=== PATIENT | female | born 1945 | race Caucasian/White ===

== ENCOUNTER 2022-12-05 10:34 | Inpatient (IN) | payer MEDICARE ==
--- NOTE | 2022-12-05 11:39 | ED ---
General Adult HPI - General Chief complaint: Extremity Injury, Lower Stated complaint: knee pain/swelling Time Seen by Provider: 12/05/22 11:08 Source: patient, family, RN notes reviewed Mode of arrival: wheelchair Limitations: no limitations - History of Present Illness Initial comments: 77-year-old female presents to the emergency department chief complaint of left knee pain 1 day. Past medical history includes hypertension, hyperlipidemia, osteoarthritis. Patient states that she had a fall on in which she got lightheaded and fell down. She states that she did not hit her head and she is not on blood thinners. She was evaluated yesterday for shoulder pain following the fall and states that she has a broken bone in her arm/shoulder. She is currently in a sling. She states she was not having significant knee pain at the time of evaluation yesterday but the pain immediately developed today. She does report falling on the left knee. She states that the pain is worse with walking but constant. She also reports that she has been lightheaded pretty consistently since before the fall. She states that nothing makes lighthead edness better or worse. Her daughter states that she is not hydrating or eating well. Patient denies fever, chills, abdominal pain, nausea, vomiting, diarrhea. - Related Data Home Medications Medication Instructions Recorded Confirmed Ascorbic Acid [Vitamin C] 500 mg PO DAILY 07/22/22 12/05/22 Cetirizine HCl [Zyrtec] 10 mg PO HS 07/22/22 12/05/22 Cholecalciferol [Vitamin D3 (25 50 mcg PO DAILY 07/22/22 12/05/22 Mcg = 1000 Iu)] Enalapril/Hydrochlorothiazide 1 tab PO DAILY 07/22/22 12/05/22 [Enalapril/Hydrochlorothiazide 10-25 mg Tablet] Prevagen Supplement 1 tab PO DAILY 07/22/22 12/05/22 Simvastatin [Zocor] 10 mg PO HS 07/22/22 12/05/22 Turmeric Root Extract [Turmeric] 500 mg PO DAILY 07/22/22 12/05/22 Ubidecarenone [Co Q-10] 200 mg PO DAILY 07/22/22 12/05/22 traMADol HCL 50 mg PO Q8H PRN 12/05/22 12/05/22 Allergies Allergy/AdvReac Type Severity Reaction Status Date / Time codeine Allergy Confusion Verified 12/05/22 14:09 Review of Systems ROS Statement: Those systems with pertinent positive or pertinent negative responses have been documented in the HPI. ROS Other: All systems not noted in ROS Statement are negative. Past Medical History Past Medical History: Hyperlipidemia, Hypertension, Osteoarthritis (OA) Additional Past Medical History / Comment(s): hemorrhoids w/ prolapse History of Any Multi-Drug Resistant Organisms: None Reported Past Surgical History: Appendectomy, Back Surgery Additional Past Surgical History / Comment(s): spinal surgery to remove cysts Past Anesthesia/Blood Transfusion Reactions: No Reported Reaction Additional Past Anesthesia/Blood Transfusion Reaction / Comment(s): no hx blood transfusion Past Psychological History: No Psychological Hx Reported Smoking Status: Current every day smoker Past Alcohol Use History: None Reported Past Drug Use History: None Reported - Past Family History Mother Family Medical History: No Reported History General Exam Limitations: no limitations General appearance: alert, in no apparent distress Head exam: Present: atraumatic, normocephalic, normal inspection Eye exam: Present: normal appearance, PERRL, EOMI Neck exam: Present: normal inspection. Absent: tenderness, meningismus, lymphadenopathy Respiratory exam: Absent: respiratory distress, stridor, chest wall tenderness, accessory muscle use Cardiovascular Exam: Present: regular rate, normal rhythm GI/Abdominal exam: Present: soft, normal bowel sounds. Absent: distended, tenderness, guarding, rebound, rigid Extremities exam: Present: tenderness (lt knee, right shoulder ), normal capillary refill, other (DP and PT pulses 2+, Left knee swelling and ecchymosis ) Back exam: Present: normal inspection Neurological exam: Present: alert, oriented X3 Psychiatric exam: Present: depressed Skin exam: Present: warm, dry, intact, other (ecchymosis lt knee) Course Vital Signs 12/05/22 12/05/22 12/05/22 10:50 14:00 14:44 Temperature 98.2 F Pulse Rate 70 68 Respiratory 18 18 Rate Blood Pressure 101/55 124/63 O2 Sat by Pulse 99 95 84 L Oximetry 12/05/22 12/05/22 12/05/22 15:00 16:00 17:00 Temperature Pulse Rate Respiratory Rate Blood Pressure 124/63 124/63 O2 Sat by Pulse 92 L Oximetry 12/05/22 17:17 Temperature 98.7 F Pulse Rate 78 Respiratory 16 Rate Blood Pressure O2 Sat by Pulse 99 Oximetry Medical Decision Making - Medical Decision Making Was pt. sent in by a medical professional or institution (, PA, WALL TAPER HELPER, urgent care, hospital, or alf...) When possible be specific @ -No Did you speak to anyone other than the patient for history (EMS, parent, family, police, friend...)? What history was obtained from this source @ -Patient's daughter provided some history for this patient Did you review nursing and triage notes (agree or disagree)? Why? @ -I reviewed and agree with nursing and triage notes Were old charts reviewed (outside hosp., previous admission, EMS record, old EKG, old radiological studies, urgent care reports/EKG's, alf records)? Report findings @ -No old charts were reviewed Differential Diagnosis (chest pain, altered mental status, abdominal pain women, abdominal pain men, vaginal bleeding, weakness, fever, dyspnea, syncope, headache, dizziness, GI bleed, back pain, seizure, CVA, palpatations, mental health, musculoskeletal)? @ -Differential Dizziness: Benign paroxysmal positional Vertigo, Menieres disease, otitis media, acoustic neuroma, vertebrobasilar insufficiency, cerebellar stroke, encephalitis, hypovolemic, arrhythmia, coronary artery syndrome, anemia, this is not meant to be an all-inclusive list Differential Musculoskeletal Muscular strain, contusion, ligament sprain, fracture, arthritis, septic arthritis, bursitis, cellulitis, muscle spasm, nerve compression, DVT, arterial occlusion, herpes zoster, electrolyte abnormality, tumor.... This is not meant to be in all inclusive list EKG interpreted by me (3pts min.). @ -EKG at 1155 showed sinus rhythm rate 72, AZ 200, QRS 64, QTQTc [id number] X-rays interpreted by me (1pt min.). @ -Chest x-ray showed left basilar atelectasis versus pneumonia; curvilinear density on the right lung base of uncertain etiology X-ray left knee showed osteoarthritic changes mild knee effusion CT interpreted by me (1pt min.). @ -None done U/S interpreted by me (1pt. min.). @ -None done What testing was considered but not performed or refused? (CT, X-rays, U/S, labs)? Why? @ -None What meds were considered but not given or refused? Why? @ -None Did you discuss the management of the patient with other professionals (professionals i.e. , PA, WALL TAPER HELPER, lab, RT, psych nurse, social services technician, furniture upholstery mechanic, teacher, fare enforcement officer, geriatric case manager)? Give summary @ -Case was discussed with Dr. Morgan with [facility] who is accepting of the admission Was smoking cessation discussed for >3mins.? @ -No Was critical care preformed (if so, how long)? @ -No Were there social determinants of health that impacted care today? How? (Homelessness, low income, unemployed, alcoholism, drug addiction, transportation, low edu. Level, literacy, decrease access to med. care, longterm, rehab)? @ -No Was there de-escalation of care discussed even if they declined (Discuss DNR or withdrawal of care, Hospice)? DNR status @ -No What co-morbidities impacted this encounter? (DM, HTN, Smoking, COPD, CAD, Cancer, CVA, ARF, Chemo, Hep., AIDS, mental health diagnosis, sleep apnea, morbi d obesity)? @ -None Was patient admitted / discharged? Hospital course, mention meds given and route, prescriptions, significant lab abnormalities, going to OR and other pertinent info. @ -admitted. Patient presented to the emergency department for chief complaint of fall, knee pain, lightheadedness. Labs were obtained and patient was found to be hyponatremic with a sodium of 121. CBC showed WBC 15.3, hgb 11.8, hct 34.8, Potassium 3.6, chloride 86, BUN 23, creatinine 1.3, serum osmolality 251; UA showed large leukocyte esterase, 11 squamous cells, 35 WBC X-ray left knee was obtained which showed no evidence for acute fracture, arthri tic changes; chest x-ray showed left basilar atelectasis versus pneumonia. Case was discussed with Dr. Morgan with [facility] who was accepting of the admission. He requested a CT of the chest be ordered along with repeat urine. Patient would benefit from PT and OT consultation. Case discussed with my attending, Dr. De Oliveira Undiagnosed new problem with uncertain prognosis? @ -No Drug Therapy requiring intensive monitoring for toxicity (Heparin, Nitro, Insulin, Cardizem)? @ -No Were any procedures done? @ -No Diagnosis/symptom? @ -Hyponatremia Acute, or Chronic, or Acute on Chronic? @ -Acute Uncomplicated (without systemic symptoms) or Complicated (systemic symptoms)? @ -Uncomplicated Side effects of treatment? @ -No Exacerbation, Progression, or Severe Exacerbation? @ -No Poses a threat to life or bodily function? How? (Chest pain, USA, NV, pneumonia, PE, COPD, DKA, ARF, appy, cholecystitis, CVA, Diverticulitis, Homicidal, Suicidal, threat to staff... and all critical care pts) @ -No - Lab Data Result diagrams: 12/05/22 11:57 12/05/22 20:47 Lab Results 12/05/22 12/05/22 12/05/22 Range/Units 11:57 11:57 11:57 WBC 15.3 H (3.8-10.6) k/uL RBC 4.05 (3.80-5.40) m/uL Hgb 11.8 (11.4-16.0) gm/dL Hct 34.8 (34.0-46.0) % MCV 86.0 (80.0-100.0) fL MCH 29.1 (25.0-35.0) pg MCHC 33.8 (31.0-37.0) g/dL RDW 13.4 (11.5-15.5) % Plt Count 328 (150-450) k/uL MPV 6.8 Neutrophils % 91 % Lymphocytes % 4 % Monocytes % 4 % Eosinophils % 1 % Basophils % 0 % Neutrophils # 14.0 H (1.3-7.7) k/uL Lymphocytes # 0.6 L (1.0-4.8) k/uL Monocytes # 0.6 (0-1.0) k/uL Eosinophils # 0.1 (0-0.7) k/uL Basophils # 0.0 (0-0.2) k/uL PT 9.7 (9.0-12.0) sec INR 0.9 (<1.2) APTT 24.2 (22.0-30.0) sec Sodium 121 L (137-145) mmol/L Potassium 3.6 (3.5-5.1) mmol/L Chloride 86 L (98-107) mmol/L Carbon Dioxide 23 (22-30) mmol/L Anion Gap 12 mmol/L BUN 23 H (7-17) mg/dL Creatinine 1.30 H (0.52-1.04) mg/dL Est GFR (CKD-EPI)AfAm 45 (>60 ml/min/1.73 sqM) Est GFR (CKD-EPI)NonAf 39 (>60 ml/min/1.73 sqM) Glucose 104 H (74-99) mg/dL Plasma Lactic Acid Saurabh (0.7-2.0) mmol/L Calcium 8.6 (8.4-10.2) mg/dL Magnesium 1.7 (1.6-2.3) mg/dL Total Bilirubin 0.9 (0.2-1.3) mg/dL AST 30 (14-36) U/L ALT 15 (4-34) U/L Alkaline Phosphatase 45 (38-126) U/L Troponin I (0.000-0.034) ng/mL Total Protein 7.3 (6.3-8.2) g/dL Albumin 4.3 (3.5-5.0) g/dL Urine Color Urine Appearance (Clear) Urine pH (5.0-8.0) Ur Specific Ponce (1.001-1.035) Urine Protein (Negative) Urine Glucose (UA) (Negative) Urine Ketones (Negative) Urine Blood (Negative) Urine Nitrite (Negative) Urine Bilirubin (Negative) Urine Urobilinogen (<2.0) mg/dL Ur Leukocyte Esterase (Negative) Urine RBC (0-5) /hpf Urine WBC (0-5) /hpf Ur Squamous Epith Cells (0-4) /hpf Urine Bacteria (None) /hpf Hyaline Casts (0-2) /lpf Urine Mucus (None) /hpf Urine Osmolality (50-1400) mosm/kg Urine Creatinine mg/dL Protein/Creatinin Ratio Urine Total Protein mg/dL 12/05/22 12/05/22 12/05/22 Range/Units 11:57 11:57 12:57 WBC (3.8-10.6) k/uL RBC (3.80-5.40) m/uL Hgb (11.4-16.0) gm/dL Hct (34.0-46.0) % MCV (80.0-100.0) fL MCH (25.0-35.0) pg MCHC (31.0-37.0) g/dL RDW (11.5-15.5) % Plt Count (150-450) k/uL MPV Neutrophils % % Lymphocytes % % Monocytes % % Eosinophils % % Basophils % % Neutrophils # (1.3-7.7) k/uL Lymphocytes # (1.0-4.8) k/uL Monocytes # (0-1.0) k/uL Eosinophils # (0-0.7) k/uL Basophils # (0-0.2) k/uL PT (9.0-12.0) sec INR (<1.2) APTT (22.0-30.0) sec Sodium (137-145) mmol/L Potassium (3.5-5.1) mmol/L Chloride (98-107) mmol/L Carbon Dioxide (22-30) mmol/L Anion Gap mmol/L BUN (7-17) mg/dL Creatinine (0.52-1.04) mg/dL Est GFR (CKD-EPI)AfAm (>60 ml/min/1.73 sqM) Est GFR (CKD-EPI)NonAf (>60 ml/min/1.73 sqM) Glucose (74-99) mg/dL Plasma Lactic Acid Saurabh 1.0 (0.7-2.0) mmol/L Calcium (8.4-10.2) mg/dL Magnesium (1.6-2.3) mg/dL Total Bilirubin (0.2-1.3) mg/dL AST (14-36) U/L ALT (4-34) U/L Alkaline Phosphatase (38-126) U/L Troponin I <0.012 (0.000-0.034) ng/mL Total Protein (6.3-8.2) g/dL Albumin (3.5-5.0) g/dL Urine Color Yellow Urine Appearance Cloudy H (Clear) Urine pH 5.5 (5.0-8.0) Ur Specific Ponce 1.014 (1.001-1.035) Urine Protein Trace H (Negative) Urine Glucose (UA) Negative (Negative) Urine Ketones Negative (Negative) Urine Blood Trace H (Negative) Urine Nitrite Negative (Negative) Urine Bilirubin Negative (Negative) Urine Urobilinogen <2.0 (<2.0) mg/dL Ur Leukocyte Esterase Large H (Negative) Urine RBC 14 H (0-5) /hpf Urine WBC 35 H (0-5) /hpf Ur Squamous Epith Cells 11 H (0-4) /hpf Urine Bacteria Rare H (None) /hpf Hyaline Casts 23 H (0-2) /lpf Urine Mucus Rare H (None) /hpf Urine Osmolality (50-1400) mosm/kg Urine Creatinine mg/dL Protein/Creatinin Ratio Urine Total Protein mg/dL 12/05/22 Range/Units 12:57 WBC (3.8-10.6) k/uL RBC (3.80-5.40) m/uL Hgb (11.4-16.0) gm/dL Hct (34.0-46.0) % MCV (80.0-100.0) fL MCH (25.0-35.0) pg MCHC (31.0-37.0) g/dL RDW (11.5-15.5) % Plt Count (150-450) k/uL MPV Neutrophils % % Lymphocytes % % Monocytes % % Eosinophils % % Basophils % % Neutrophils # (1.3-7.7) k/uL Lymphocytes # (1.0-4.8) k/uL Monocytes # (0-1.0) k/uL Eosinophils # (0-0.7) k/uL Basophils # (0-0.2) k/uL PT (9.0-12.0) sec INR (<1.2) APTT (22.0-30.0) sec Sodium (137-145) mmol/L Potassium (3.5-5.1) mmol/L Chloride (98-107) mmol/L Carbon Dioxide (22-30) mmol/L Anion Gap mmol/L BUN (7-17) mg/dL Creatinine (0.52-1.04) mg/dL Est GFR (CKD-EPI)AfAm (>60 ml/min/1.73 sqM) Est GFR (CKD-EPI)NonAf (>60 ml/min/1.73 sqM) Glucose (74-99) mg/dL Plasma Lactic Acid Saurabh (0.7-2.0) mmol/L Calcium (8.4-10.2) mg/dL Magnesium (1.6-2.3) mg/dL Total Bilirubin (0.2-1.3) mg/dL AST (14-36) U/L ALT (4-34) U/L Alkaline Phosphatase (38-126) U/L Troponin I (0.000-0.034) ng/mL Total Protein (6.3-8.2) g/dL Albumin (3.5-5.0) g/dL Urine Color Urine Appearance (Clear) Urine pH (5.0-8.0) Ur Specific Ponce (1.001-1.035) Urine Protein (Negative) Urine Glucose (UA) (Negative) Urine Ketones (Negative) Urine Blood (Negative) Urine Nitrite (Negative) Urine Bilirubin (Negative) Urine Urobilinogen (<2.0) mg/dL Ur Leukocyte Esterase (Negative) Urine RBC (0-5) /hpf Urine WBC (0-5) /hpf Ur Squamous Epith Cells (0-4) /hpf Urine Bacteria (None) /hpf Hyaline Casts (0-2) /lpf Urine Mucus (None) /hpf Urine Osmolality 351 (50-1400) mosm/kg Urine Creatinine 141.0 mg/dL Protein/Creatinin Ratio 0.113 Urine Total Protein 16.0 mg/dL Disposition Clinical Impression: Hyponatremia Disposition: ADMITTED IP TO THIS HOSP Condition: Stable Is patient prescribed a controlled substance at d/c from ED?: No
[2022-12-05 12:09] LABS: Basophils % (A) 0 %; Eosinophils # (A) 0.1 k/uL (0-0.7); Eosinophils % (A) 1 %; HCT 34.8 % (34.0-46.0); HGB 11.8 gm/dL (11.4-16.0); Lymphocytes # (A) 0.6 k/uL (1.0-4.8); Lymphocytes % (A) 4 %; MCH 29.1 pg (25.0-35.0); MCHC 33.8 g/dL (31.0-37.0); Mean Platelet Volume 6.8; Monocytes # (A) 0.6 k/uL (0-1.0); Monocytes % (A) 4 %; Neutrophils % (A) 91 %; Platelet Count 328 k/uL (150-450); RBC 4.05 m/uL (3.80-5.40); RDW 13.4 % (11.5-15.5); WBC 15.3 k/uL (3.8-10.6)
[2022-12-05 12:23] LABS: ALT 15 U/L (4-34); African American GFR (CKD) 45 (>60 ml/min/1.73 sqM); Albumin 4.3 g/dL (3.5-5.0); Anion Gap 12 mmol/L; Blood Urea Nitrogen 23 mg/dL (7-17); Calcium 8.6 mg/dL (8.4-10.2); Carbon Dioxide 23 mmol/L (22-30); Chloride 86 mmol/L (98-107); Glucose 104 mg/dL (74-99); Non-African American GFR(CKD) 39 (>60 ml/min/1.73 sqM); Sodium 121 mmol/L (137-145); Total Bilirubin 0.9 mg/dL (0.2-1.3); Total Protein 7.3 g/dL (6.3-8.2)
[2022-12-05 12:32] LABS: AST 30 U/L (14-36); Alkaline Phosphatase 45 U/L (38-126); Magnesium 1.7 mg/dL (1.6-2.3); Potassium 3.6 mmol/L (3.5-5.1)
--- NOTE | 2022-12-05 13:00 | XR ---
EXAMINATION TYPE: XR knee complete LT DATE OF EXAM: 12/05/2022 COMPARISON: None HISTORY: Fall, pain TECHNIQUE: 3 view left knee FINDINGS: There is loss of the medial compartment joint space. Narrowing lateral compartment joint sp adela is present. Medial and lateral tibial plateau spurring and medial femoral condylar spurring is pr esent. Patellofemoral joint space is narrowed. Small to moderate joint effusion is present. No acute fractures are evident. Follow up exams can be performed 7-10 days from acute trauma for cont inued pain. IMPRESSION: 1. Degenerative joint changes throughout the left knee greatest in the medial compartment. 2. Nmaan-af-ubujafji joint effusion. 3. No acute osseous abnormality. Follow-up as clinically indicated.
--- NOTE | 2022-12-05 13:02 | XR ---
EXAMINATION TYPE: XR chest 2V DATE OF EXAM: 12/05/2022 COMPARISON: None INDICATION: Weakness, fall TECHNIQUE: Frontal and lateral views of the chest are obtained. FINDINGS: The heart size is normal. The pulmonary vasculature is normal. There is curvilinear density overlying the right lower lung field of uncertain etiology. This could b e artifact. Consider mass within the thorax. There is left lower lobe peripheral infiltrate. Correlat e for atelectasis or pneumonia.. IMPRESSION: 1. Clinical correlation recommended for left basilar atelectasis or pneumonia. 2. Curvilinear density right lung base of uncertain etiology. Follow-up is recommended.
[2022-12-05 13:06] LABS: INR 0.9 (<1.2); Partial Thromboplastin Time 24.2 sec (22.0-30.0); Prothrombin Time 9.7 sec (9.0-12.0)
[2022-12-05] MEDS ORDERED: SODIUM CHLORIDE 0.9% 500 ML 500 ML IV STA (13:11)
[2022-12-05] MEDS ORDERED: ACETAMINOPHEN TAB 325 MG TAB PO STA (13:11)
[2022-12-05] MEDS ORDERED: MORPHINE SULFATE 2 MG/ML SYRINGE IVP ONE (13:11)
[2022-12-05] MEDS ORDERED: LIDOCAINE 5% PATCH TOPICAL STA (13:14)
[2022-12-05 13:18] LABS: Appearance,Urine Cloudy (Clear); Bacteria,Urine Rare /hpf; Bilirubin,Urine Negative (Negative); Blood,Urine Trace (Negative); Color,Urine Yellow; Glucose,Urine (UA) Negative (Negative); Hyaline Casts,Urine 23 /lpf (0-2); Ketones,Urine Negative (Negative); Leukocyte Esterase,Urine Large (Negative); Mucus,Urine Rare /hpf; Nitrite,Urine Negative (Negative); PH, Urine 5.5 (5.0-8.0); Protein,Urine Trace (Negative); RBC,Urine 14 /hpf (0-5); Specific Gravity,Urine 1.014 (1.001-1.035); Squamous Epithelial Cell,Urine 11 /hpf (0-4); Urobilinogen,Urine <2.0 mg/dL (<2.0); WBC,Urine 35 /hpf (0-5)
[2022-12-05 13:41] LABS: Protein/Creatinine Ratio,Urine 0.113
[2022-12-05] MEDS ORDERED: ACETAMINOPHEN TAB 325 MG TAB PO PRN (13:42)
[2022-12-05] MEDS ORDERED: traMADol 50 MG TAB PO PRN (13:42)
[2022-12-05] MEDS ORDERED: NALOXONE 0.4 MG/ML 1 ML VIAL IV PRN (13:42)
[2022-12-05] MEDS: MORPHINE SULFATE 4 MG/ML SYRINGE IV PRN (14:52)
--- NOTE | 2022-12-05 15:42 | P.HPIM ---
History of Present Illness H&P Date: 12/05/22 Chief Complaint: Dizziness, knee pain 77-year-old woman with medical history of hypertension, hyperlipidemia presented for knee pain, dizziness. Patient had a fall night, during which time she reported some dizziness prior to falling. She presented to the emergency room and was found to have a fracture of her upper extremity, and was discharged with a sling. She reports that this morning she started to experience right knee pain as well, making it difficult to ambulate without significant amounts of pain. Patient subsequently is brought into the hospital by her daughter for further evaluation. Patient reports having history of low sodium, frequent symptoms of dizziness upon sitting or standing, especially after taking her enalapril/hydrochlorothiazide combination pill. She reports she's been eating well, 3 meals a day. She does not have any complaints regarding her stool. She does report being thirsty. She otherwise denies fevers, chills. She reports some nausea. She denies vomiting. Denies chest pain, palpitations, cough, dyspnea, abdominal pain, constipation, diarrhea, dysuria, dyschezia, numbness of extremities. In the emergency room, patient was afebrile, 101/55, heart rate 70, 99% on room air. CBC shows leukocytosis of 15.3. Basic metabolic panel shows sodium of 121, chloride of 86, BUN of 23, creatinine of 1.3. Liver function tests are unremarkable. Troponin is less than 0.012. Coags are unremarkable. UA was contaminated. Urine total protein was 16. Knee x-ray shows small to moderate joint effusion with degenerative changes of the left knee. Chest x-ray showed clear parenchyma bilaterally, normal sized heart, curvilinear density of the right lung which does not completely look like atelectasis. Case discussed the emergency room provider and she was made to admit the patient for further evaluation and management of hyponatremia. All Systems reviewed and pertinent positives and negatives noted in HPI, all other symptoms are negative Gen: in no apparent distress, resting comfortably in bed Eyes: PERRL, no scleral injection or icterus HENT: normocephalic, atraumatic, good hearing acuity, dry mucous membranes Neck: no tracheal deviation, full range of motion Resp: good air exchange, breathing comfortably with no accessory muscle use, no tactile fremitus, clear to auscultation bilaterally CVS: good distal perfusion x 4, no pitting edema, regular rate and rhythm GI: soft, NTTP, ND, no hepatosplenomegaly : no suprapubic tenderness, no CVAT, ha catheter not present MSK: no clubbing, no cyanosis, no noted contractures of extremities Skin: no noted rashes, petechiae; temperature of skin is appropriate Neuro: moving all extremities without signs of weakness, CN II-XII intact Psych: cooperative, euthymic mood, insight and judgment intact Labs and imaging as above Assessment: Hyponatremia, mildly hypovolemic Acute kidney injury Knee Pain Shoulder Pain Possible Lung mass Hypertension Hyperlipidemia Plan: Vital signs reviewed and noted in the HPI Lab work reviewed and noted in the HPI CXR are personally interpreted and noted in the HPI Case was discussed with the Emergency Room provider and decision was made to admit the patient for hyponatremia, kristofer Ordered CT chest to rule out lung mass based on CXR findings Ordered EKG due to history of syncope Discontinued patient's home tramadol, HCTZ, and enalpril for hyponatremia, and KRISTOFER respectively SOsm, UOsm ordered and pending BMP q6h ordered Fluid restriction and regular diet ordered Orthostatics BID ordered PT consult ordered Pain control: Tylenol PRN Consulted nephrology for hyponatremia Consulted orthopedics for knee pain Pt is DNR/DNI DPOA is daughter DVT PPx with heparin TID Past Medical History Past Medical History: Hyperlipidemia, Hypertension, Osteoarthritis (OA) Additional Past Medical History / Comment(s): hemorrhoids w/ prolapse History of Any Multi-Drug Resistant Organisms: None Reported Past Surgical History: Appendectomy, Back Surgery Additional Past Surgical History / Comment(s): spinal surgery to remove cysts Past Anesthesia/Blood Transfusion Reactions: No Reported Reaction Additional Past Anesthesia/Blood Transfusion Reaction / Comment(s): no hx blood transfusion Past Psychological History: No Psychological Hx Reported Smoking Status: Current every day smoker Past Alcohol Use History: None Reported Past Drug Use History: None Reported - Past Family History Mother Family Medical History: No Reported History Medications and Allergies Home Medications Medication Instructions Recorded Confirmed Type Ascorbic Acid [Vitamin C] 500 mg PO DAILY 07/22/22 12/05/22 History Cetirizine HCl [Zyrtec] 10 mg PO HS 07/22/22 12/05/22 History Cholecalciferol [Vitamin D3 (25 50 mcg PO DAILY 07/22/22 12/05/22 History Mcg = 1000 Iu)] Enalapril/Hydrochlorothiazide 1 tab PO DAILY 07/22/22 12/05/22 History [Enalapril/Hydrochlorothiazide 10-25 mg Tablet] Prevagen Supplement 1 tab PO DAILY 07/22/22 12/05/22 History Simvastatin [Zocor] 10 mg PO HS 07/22/22 12/05/22 History Turmeric Root Extract [Turmeric] 500 mg PO DAILY 07/22/22 12/05/22 History Ubidecarenone [Co Q-10] 200 mg PO DAILY 07/22/22 12/05/22 History traMADol HCL 50 mg PO Q8H PRN 12/05/22 12/05/22 History Allergies Allergy/AdvReac Type Severity Reaction Status Date / Time codeine Allergy Confusion Verified 12/05/22 14:09 Physical Exam Osteopathic Statement: *. No significant issues noted on an osteopathic structural exam other than those noted in the History and Physical/Consult. Vitals: Vital Signs Temp Pulse Resp BP Pulse Ox 12/05/22 14:00 68 18 124/63 95 12/05/22 10:50 98.2 F 70 18 101/55 99 Intake and Output 12/05/22 12/05/22 12/05/22 06:59 14:59 22:59 Other: Weight 65.771 kg Results CBC & Chem 7: 12/05/22 11:57 12/05/22 11:57 Labs: Abnormal Lab Results - Last 24 Hours (Table) 12/05/22 12/05/22 12/05/22 Range/Units 11:57 11:57 12:57 WBC 15.3 H (3.8-10.6) k/uL Neutrophils # 14.0 H (1.3-7.7) k/uL Lymphocytes # 0.6 L (1.0-4.8) k/uL Sodium 121 L (137-145) mmol/L Chloride 86 L (98-107) mmol/L BUN 23 H (7-17) mg/dL Creatinine 1.30 H (0.52-1.04) mg/dL Glucose 104 H (74-99) mg/dL Urine Appearance Cloudy H (Clear) Urine Protein Trace H (Negative) Urine Blood Trace H (Negative) Ur Leukocyte Esterase Large H (Negative) Urine RBC 14 H (0-5) /hpf Urine WBC 35 H (0-5) /hpf Ur Squamous Epith Cells 11 H (0-4) /hpf Urine Bacteria Rare H (None) /hpf Hyaline Casts 23 H (0-2) /lpf Urine Mucus Rare H (None) /hpf
[2022-12-05 16:03] LABS: African American GFR (CKD) 45 (>60 ml/min/1.73 sqM); Anion Gap 11 mmol/L; Blood Urea Nitrogen 23 mg/dL (7-17); Calcium 8.9 mg/dL (8.4-10.2); Carbon Dioxide 23 mmol/L (22-30); Chloride 87 mmol/L (98-107); Glucose 95 mg/dL (74-99); Non-African American GFR(CKD) 39 (>60 ml/min/1.73 sqM); Potassium 3.2 mmol/L (3.5-5.1); Sodium 121 mmol/L (137-145)
--- NOTE | 2022-12-05 16:13 | CT ---
EXAMINATION TYPE: CT chest wo con DATE OF EXAM: 12/05/2022 COMPARISON: None HISTORY: rt lung density on XR CT DLP: 289.1 mGycm. Automated Exposure Control for Dose Reduction was Utilized. TECHNIQUE: CT scan of the thorax is performed without IV contrast. FINDINGS: LUNGS: There is mild coarse interstitial fibrosis in the lung bases bilaterally. There is mild by basilar pl eural thickening. There is no pneumothorax or pleural effusion. There is no airspace consolidation or groundglass density. The great vessels chest are normal and there is no mediastinal, hilar or axillary adenopathy. Limited scanning the upper abdomen reveals tiny gallstones. No focal osseous abnormalities are seen. IMPRESSION: 1. No acute cardiopulmonary disease. 2. Chronic changes in the lung bases described above. 3. Mild cholelithiasis.
[2022-12-05] MEDS: HEPARIN SODIUM,PORCINE/PF 5,000 UNIT/0.5 ML SYRINGE SQ SCH ×2 (16:36→23:53)
[2022-12-05] MEDS: LORATADINE 10 MG TAB PO SCH (20:16)
[2022-12-05] MEDS: ATORVASTATIN 10 MG TAB PO SCH (20:16)
[2022-12-05 23:25] LABS: African American GFR (CKD) 44 (>60 ml/min/1.73 sqM); Anion Gap 9 mmol/L; Blood Urea Nitrogen 23 mg/dL (7-17); Calcium 8.9 mg/dL (8.4-10.2); Carbon Dioxide 25 mmol/L (22-30); Chloride 86 mmol/L (98-107); Glucose 104 mg/dL (74-99); Non-African American GFR(CKD) 39 (>60 ml/min/1.73 sqM); Potassium 3.1 mmol/L (3.5-5.1); Sodium 120 mmol/L (137-145)
[2022-12-06] MEDS ORDERED: SODIUM CHLORIDE 0.9% 1,000 ML IV ONE (07:29)
[2022-12-06] MEDS: HEPARIN SODIUM,PORCINE/PF 5,000 UNIT/0.5 ML SYRINGE SQ SCH ×3 (07:43→23:45)
[2022-12-06] MEDS: ASCORBIC ACID 500 MG TAB PO SCH (07:43)
[2022-12-06] MEDS: CHOLECALCIFEROL 25 MCG (1000 IU) TABLET PO SCH (07:43)
[2022-12-06] MEDS: MORPHINE SULFATE 4 MG/ML SYRINGE IV PRN ×2 (08:05→15:39)
[2022-12-06] MEDS ORDERED: NON FORMULARY DRUG (Turmeric Root Extract [Turmeric] 500 MG Tablet) PO SCH (09:00)
[2022-12-06] MEDS ORDERED: PREVAGEN SUPPLEMENT PO SCH (09:00)
[2022-12-06] MEDS ORDERED: NON FORMULARY DRUG (Ubidecarenone [Co Q-10] 400 MG Capsule) PO SCH (09:00)
[2022-12-06 09:02] LABS: African American GFR (CKD) 59 (>60 ml/min/1.73 sqM); Anion Gap 10 mmol/L; Blood Urea Nitrogen 21 mg/dL (7-17); Calcium 8.8 mg/dL (8.4-10.2); Carbon Dioxide 22 mmol/L (22-30); Chloride 91 mmol/L (98-107); Glucose 113 mg/dL (74-99); Non-African American GFR(CKD) 51 (>60 ml/min/1.73 sqM); Sodium 123 mmol/L (137-145)
[2022-12-06 09:07] LABS: Potassium 4.4 mmol/L (3.5-5.1)
[2022-12-06] MEDS: SODIUM CHLORIDE 0.9% 1,000 ML IV SCH ×2 (09:24→21:43)
--- NOTE | 2022-12-06 09:31 | P.NPCON ---
History of Present Illness - Reason for Consult hyponatremia - History of Present Illness Patient is a 77-year-old male with history of hypertension, hyperlipidemia who initially presented to the ER status post fall and was found to have fracture of her right arm. Details are not available. Patient returns to the ER with increased weakness and knee pain. There is history of decreased oral intake. Sodium was 121 on admission. Blood pressure is borderline with systolic at 10 1 mmHg Started on IV fluids. Patient denies any nausea or vomiting. Patient is maintained on hydrochlorothiazide. Urine osmolality was 351. Review of Systems As per HPI Past Medical History Past Medical History: Hyperlipidemia, Hypertension, Osteoarthritis (OA) Additional Past Medical History / Comment(s): hemorrhoids w/ prolapse History of Any Multi-Drug Resistant Organisms: None Reported Past Surgical History: Appendectomy, Back Surgery Additional Past Surgical History / Comment(s): spinal surgery to remove cysts Past Anesthesia/Blood Transfusion Reactions: No Reported Reaction Additional Past Anesthesia/Blood Transfusion Reaction / Comment(s): no hx blood transfusion Past Psychological History: No Psychological Hx Reported Smoking Status: Current every day smoker Past Alcohol Use History: None Reported Past Drug Use History: None Reported - Past Family History Mother Family Medical History: No Reported History Medications and Allergies Home Medications Medication Instructions Recorded Confirmed Type Ascorbic Acid [Vitamin C] 500 mg PO DAILY 07/22/22 12/05/22 History Cetirizine HCl [Zyrtec] 10 mg PO HS 07/22/22 12/05/22 History Cholecalciferol [Vitamin D3 (25 50 mcg PO DAILY 07/22/22 12/05/22 History Mcg = 1000 Iu)] Enalapril/Hydrochlorothiazide 1 tab PO DAILY 07/22/22 12/05/22 History [Enalapril/Hydrochlorothiazide 10-25 mg Tablet] Prevagen Supplement 1 tab PO DAILY 07/22/22 12/05/22 History Simvastatin [Zocor] 10 mg PO HS 07/22/22 12/05/22 History Turmeric Root Extract [Turmeric] 500 mg PO DAILY 07/22/22 12/05/22 History Ubidecarenone [Co Q-10] 200 mg PO DAILY 07/22/22 12/05/22 History traMADol HCL 50 mg PO Q8H PRN 12/05/22 12/05/22 History Allergies Allergy/AdvReac Type Severity Reaction Status Date / Time codeine Allergy Confusion Verified 12/05/22 14:09 Physical Exam Vitals: Vital Signs Temp Pulse Pulse Resp BP BP Pulse Ox 12/06/22 08:33 93 L 12/06/22 06:53 98.5 F 97 17 136/68 93 L 12/06/22 00:15 97.6 F 73 18 117/66 96 12/05/22 18:55 96.7 F L 73 18 106/61 98 12/05/22 17:17 98.7 F 78 16 99 12/05/22 17:00 124/63 12/05/22 16:00 92 L 12/05/22 15:00 124/63 12/05/22 14:44 84 L 12/05/22 14:00 68 18 124/63 95 12/05/22 10:50 98.2 F 70 18 101/55 99 Intake and Output 12/05/22 12/06/22 12/06/22 22:59 06:59 14:59 Intake Total 118 Balance 118 Intake: Oral 118 Other: Voiding Method Toilet # Voids 0 1 Weight 65.771 kg Patient is awake, comfortable, no acute distress. Right arm is in sling. Examination of the heart S1 and S2 Examination of the lungs bilateral breath sounds are heard Abdomen is soft nontender Examination lower extremity shows no significant edema ON AIR HOST exam grossly intact Results - Lab Results Most recent lab results Calcium 8.8 mg/dL (8.4-10.2) 12/06/22 08:18 Magnesium 1.7 mg/dL (1.6-2.3) 12/05/22 11:57 Urine Creatinine 141.0 mg/dL 12/05/22 12:57 Urine Total Protein 16.0 mg/dL 12/05/22 12:57 12/05/22 11:57 12/06/22 08:18 Assessment and Plan Assessment: 1. Hyponatremia, appears hypovolemic. Agree with normal saline. Patient was maintained on hydrochlorothiazide which will need to be discontinued on discharge. Continue to monitor sodium levels. Patient is also encouraged to increase oral intake. 2. Status post fall possibly related to some degree of hypotension/hypovolemia. Check orthostatics before restarting antihypertensive indications [place] 3. History of hypertension blood pressure currently on the lower side, maintained on AUDRA inhibitor's and thiazide diuretics at home 4. Right upper extremity fracture. X-rays/details not available Plan: Continue with normal saline Encourage increased oral intake Avoid use of thiazide diuretics Continue to monitor serum sodium. Next Thank you for the consultation. We will continue to follow the patient with you during her hospitalization.
--- NOTE | 2022-12-06 10:05 | P.CNOR ---
History of Present Illness - HPI Consult date: 12/06/22 History of present illness: This is a 77-year-old female who is admitted for hyponatremia. Orthopedics is consulted due to left knee pain after a fall. Patient is seen and evaluated at bedside today with Dr. Leobardo Sampson. Patient states that she fell on 12/03/2022. Patient reports pain with walking. Patient's past medical history is significant for hypertension and hyperlipidemia. Patient denies any fever/chills, numbness, weakness, tingling, abdominal pain, shortness of breath or chest pain. Review of Systems See HPI. Past Medical History Past Medical History: Hyperlipidemia, Hypertension, Osteoarthritis (OA) Additional Past Medical History / Comment(s): hemorrhoids w/ prolapse History of Any Multi-Drug Resistant Organisms: None Reported Past Surgical History: Appendectomy, Back Surgery Additional Past Surgical History / Comment(s): spinal surgery to remove cysts Past Anesthesia/Blood Transfusion Reactions: No Reported Reaction Additional Past Anesthesia/Blood Transfusion Reaction / Comm: no hx blood transfusion Past Psychological History: No Psychological Hx Reported Smoking Status: Current every day smoker Past Alcohol Use History: None Reported Past Drug Use History: None Reported - Past Family History Mother Family Medical History: No Reported History Medications and Allergies Home Medications Medication Instructions Recorded Confirmed Type Ascorbic Acid [Vitamin C] 500 mg PO DAILY 07/22/22 12/05/22 History Cetirizine HCl [Zyrtec] 10 mg PO HS 07/22/22 12/05/22 History Cholecalciferol [Vitamin D3 (25 50 mcg PO DAILY 07/22/22 12/05/22 History Mcg = 1000 Iu)] Enalapril/Hydrochlorothiazide 1 tab PO DAILY 07/22/22 12/05/22 History [Enalapril/Hydrochlorothiazide 10-25 mg Tablet] Prevagen Supplement 1 tab PO DAILY 07/22/22 12/05/22 History Simvastatin [Zocor] 10 mg PO HS 07/22/22 12/05/22 History Turmeric Root Extract [Turmeric] 500 mg PO DAILY 07/22/22 12/05/22 History Ubidecarenone [Co Q-10] 200 mg PO DAILY 07/22/22 12/05/22 History traMADol HCL 50 mg PO Q8H PRN 12/05/22 12/05/22 History Allergies Allergy/AdvReac Type Severity Reaction Status Date / Time codeine Allergy Confusion Verified 12/05/22 14:09 Physical Examination On exam patient is resting comfortably in bed in no acute distress. Patient is alert and oriented 3. There is a small abrasion over the anterior aspect of the left knee. There is mild effusion. Patient has some discomfort with motion of the left knee. Calf is soft and nontender to palpation. There is no erythema or ecchymosis. Sensation intact. Neurovascular status circulatory status are intact. Results X-rays of the left knee reveals severe osteoarthritis. No fracture or dislocation. - Labs Labs: Abnormal Lab Results - Last 24 Hours (Table) 12/05/22 12/05/22 12/05/22 Range/Units 11:57 11:57 12:57 WBC 15.3 H (3.8-10.6) k/uL Neutrophils # 14.0 H (1.3-7.7) k/uL Lymphocytes # 0.6 L (1.0-4.8) k/uL Sodium 121 L (137-145) mmol/L Potassium (3.5-5.1) mmol/L Chloride 86 L (98-107) mmol/L BUN 23 H (7-17) mg/dL Creatinine 1.30 H (0.52-1.04) mg/dL Glucose 104 H (74-99) mg/dL Osmolality (280-301) mosm/kg Urine Appearance Cloudy H (Clear) Urine Protein Trace H (Negative) Urine Blood Trace H (Negative) Ur Leukocyte Esterase Large H (Negative) Urine RBC 14 H (0-5) /hpf Urine WBC 35 H (0-5) /hpf Ur Squamous Epith Cells 11 H (0-4) /hpf Urine Bacteria Rare H (None) /hpf Hyaline Casts 23 H (0-2) /lpf Urine Mucus Rare H (None) /hpf 12/05/22 12/05/22 12/05/22 Range/Units 13:39 15:22 20:47 WBC (3.8-10.6) k/uL Neutrophils # (1.3-7.7) k/uL Lymphocytes # (1.0-4.8) k/uL Sodium 121 L 120 L (137-145) mmol/L Potassium 3.2 L 3.1 L (3.5-5.1) mmol/L Chloride 87 L 86 L (98-107) mmol/L BUN 23 H 23 H (7-17) mg/dL Creatinine 1.31 H 1.32 H (0.52-1.04) mg/dL Glucose 104 H (74-99) mg/dL Osmolality 251 L (280-301) mosm/kg Urine Appearance (Clear) Urine Protein (Negative) Urine Blood (Negative) Ur Leukocyte Esterase (Negative) Urine RBC (0-5) /hpf Urine WBC (0-5) /hpf Ur Squamous Epith Cells (0-4) /hpf Urine Bacteria (None) /hpf Hyaline Casts (0-2) /lpf Urine Mucus (None) /hpf 12/06/22 Range/Units 08:18 WBC (3.8-10.6) k/uL Neutrophils # (1.3-7.7) k/uL Lymphocytes # (1.0-4.8) k/uL Sodium 123 L (137-145) mmol/L Potassium (3.5-5.1) mmol/L Chloride 91 L (98-107) mmol/L BUN 21 H (7-17) mg/dL Creatinine (0.52-1.04) mg/dL Glucose 113 H (74-99) mg/dL Osmolality (280-301) mosm/kg Urine Appearance (Clear) Urine Protein (Negative) Urine Blood (Negative) Ur Leukocyte Esterase (Negative) Urine RBC (0-5) /hpf Urine WBC (0-5) /hpf Ur Squamous Epith Cells (0-4) /hpf Urine Bacteria (None) /hpf Hyaline Casts (0-2) /lpf Urine Mucus (None) /hpf H & H 12/05/22 Range/Units 11:57 Hgb 11.8 (11.4-16.0) gm/dL Hct 34.8 (34.0-46.0) % Coagulation 12/05/22 Range/Units 11:57 INR 0.9 (<1.2) Result Diagrams: 12/05/22 11:57 12/06/22 08:18 Assessment and Plan (1) Osteoarthritis of left knee Current Visit: Yes Status: Acute Code(s): M17.12 - UNILATERAL PRIMARY OSTEOARTHRITIS, LEFT KNEE SNOMED Code(s): 241578929189769 (2) Pain in left knee Current Visit: Yes Status: Acute Code(s): M25.562 - PAIN IN LEFT KNEE SNOMED Code(s): 4677487059 (3) Fall Current Visit: Yes Status: Acute Code(s): W19.XXXA - UNSPECIFIED FALL, INITIAL ENCOUNTER SNOMED Code(s): 5910249 Plan: X-rays of the left knee are reviewed and reveal severe osteoarthritis. It is discussed with the patient at bedside that her symptoms are related to the arthritis in her knee exacerbated by her recent fall. Recommend follow up on an outpatient basis.
[2022-12-06 10:16] LABS: BUN/Creat Ratio 15.54 Ratio (12.00-20.00); Blood Urea Nitrogen 20.2 mg/dL (9.0-27.0); Calcium 9.2 mg/dL (8.7-10.3); Carbon Dioxide 22.4 mmol/L (21.6-31.8); Chloride 86 mmol/L (96-109); Glucose 82 mg/dL (70-110); Potassium 3.3 mmol/L (3.5-5.5); Sodium 124 mmol/L (135-145)
--- NOTE | 2022-12-06 11:00 | P.PN ---
Subjective Progress Note Date: 12/06/22 No new complaints today - denies dizziness. BPs improving. Gen: in no apparent distress, resting comfortably in bed Eyes: PERRL, no scleral injection or icterus HENT: normocephalic, atraumatic, good hearing acuity, dry mucous membranes Neck: no tracheal deviation, full range of motion Resp: good air exchange, breathing comfortably with no accessory muscle use, no tactile fremitus, clear to auscultation bilaterally CVS: good distal perfusion x 4, no pitting edema, regular rate and rhythm GI: soft, NTTP, ND, no hepatosplenomegaly : no suprapubic tenderness, no CVAT, ha catheter not present MSK: no clubbing, no cyanosis, no noted contractures of extremities Skin: no noted rashes, petechiae; temperature of skin is appropriate Neuro: moving all extremities without signs of weakness, CN II-XII intact Psych: cooperative, euthymic mood, insight and judgment intact 77-year-old woman with medical history of hypertension, hyperlipidemia presented for knee pain, dizziness. In the emergency room, patient was afebrile, 101/55, heart rate 70, 99% on room air. CBC shows leukocytosis of 15.3. Basic metabolic panel shows sodium of 121, chloride of 86, BUN of 23, creatinine of 1.3. Liver function tests are unremarkable. Troponin is less than 0.012. Coags are unremarkable. UA was contaminated. Urine total protein was 16. Knee x-ray shows small to moderate joint effusion with degenerative changes of the left knee. Chest x-ray showed clear parenchyma bilaterally, normal sized heart, curvilinear density of the right lung which does not completely look like atelectasis. Case discussed the emergency room provider and she was made to admit the patient for further evaluation and management of hyponatremia. Assessment: Hyponatremia, mildly hypovolemic Acute kidney injury Knee Pain Shoulder Pain Possible Lung mass Hypertension Hyperlipidemia Plan: Today, patient is afebrile, 106/61, heart rate 73, 98% on room air Basic metabolic panels from overnight reviewed, sodium went from [phone], creatinine has improved from 1.3-1.04 Serum osmolality was 251, urine osmolality was 351, urine sodium is still pending, repeat UA is still pending CT of the chest showed pleural thickening, areas of pulmonary fibrosis in the bases of the lungs, but no acute issues EKG is personally interpreted, shows normal sinus rhythm with borderline first- degree AV block, low overall voltage Discussed case with nephrology, they agree with starting fluids at this time, normal saline at 75 mL per hour and continuing to follow basic metabolic panel Orthopedic surgery note reviewed, pain is from osteoarthritis, no eventually required, outpatient follow-up Discontinued patient's home tramadol, HCTZ, and enalpril for hyponatremia, and KRISTOFER respectively BMP q6h ordered Fluid restriction has been liberated, continue regular diet Orthostatics BID ordered PT consult ordered Pain control: Tylenol PRN Continue normal saline at 75 mL per hour, received 1 L of normal saline bolus Pt is DNR/DNI DPOA is daughter DVT PPx with heparin TID Objective - Vital Signs Vital signs: Vital Signs Temp 98.5 F 12/06/22 06:53 Pulse 97 12/06/22 06:53 Resp 17 12/06/22 06:53 BP 136/68 12/06/22 06:53 Pulse Ox 93 L 12/06/22 08:33 FiO2 Intake & Output 12/05/22 12/06/22 12/06/22 18:59 06:59 18:59 Intake Total 118 Balance 118 Weight 65.771 kg Intake: Oral 118 Other: Voiding Method Toilet # Voids 0 1 - Labs CBC & Chem 7: 12/05/22 11:57 12/06/22 08:18 Labs: Abnormal Lab Results - Last 24 Hours (Table) 12/05/22 12/05/22 12/05/22 Range/Units 11:57 11:57 12:57 WBC 15.3 H (3.8-10.6) k/uL Neutrophils # 14.0 H (1.3-7.7) k/uL Lymphocytes # 0.6 L (1.0-4.8) k/uL Sodium 121 L (137-145) mmol/L Potassium (3.5-5.1) mmol/L Chloride 86 L (98-107) mmol/L Anion Gap (4.00-12.00) mmol/L BUN 23 H (7-17) mg/dL Creatinine 1.30 H (0.52-1.04) mg/dL Est GFR (CKD-EPI) (>=60) Glucose 104 H (74-99) mg/dL Osmolality (280-301) mosm/kg Urine Appearance Cloudy H (Clear) Urine Protein Trace H (Negative) Urine Blood Trace H (Negative) Ur Leukocyte Esterase Large H (Negative) Urine RBC 14 H (0-5) /hpf Urine WBC 35 H (0-5) /hpf Ur Squamous Epith Cells 11 H (0-4) /hpf Urine Bacteria Rare H (None) /hpf Hyaline Casts 23 H (0-2) /lpf Urine Mucus Rare H (None) /hpf 12/05/22 12/05/22 12/05/22 Range/Units 13:39 15:22 20:47 WBC (3.8-10.6) k/uL Neutrophils # (1.3-7.7) k/uL Lymphocytes # (1.0-4.8) k/uL Sodium 121 L 120 L (137-145) mmol/L Potassium 3.2 L 3.1 L (3.5-5.1) mmol/L Chloride 87 L 86 L (98-107) mmol/L Anion Gap (4.00-12.00) mmol/L BUN 23 H 23 H (7-17) mg/dL Creatinine 1.31 H 1.32 H (0.52-1.04) mg/dL Est GFR (CKD-EPI) (>=60) Glucose 104 H (74-99) mg/dL Osmolality 251 L (280-301) mosm/kg Urine Appearance (Clear) Urine Protein (Negative) Urine Blood (Negative) Ur Leukocyte Esterase (Negative) Urine RBC (0-5) /hpf Urine WBC (0-5) /hpf Ur Squamous Epith Cells (0-4) /hpf Urine Bacteria (None) /hpf Hyaline Casts (0-2) /lpf Urine Mucus (None) /hpf 12/06/22 12/06/22 Range/Units 04:26 08:18 WBC (3.8-10.6) k/uL Neutrophils # (1.3-7.7) k/uL Lymphocytes # (1.0-4.8) k/uL Sodium 124 L 123 L (137-145) mmol/L Potassium 3.3 L (3.5-5.1) mmol/L Chloride 86 L 91 L (98-107) mmol/L Anion Gap 15.60 H (4.00-12.00) mmol/L BUN 21 H (7-17) mg/dL Creatinine (0.52-1.04) mg/dL Est GFR (CKD-EPI) 42 L (>=60) Glucose 113 H (74-99) mg/dL Osmolality (280-301) mosm/kg Urine Appearance (Clear) Urine Protein (Negative) Urine Blood (Negative) Ur Leukocyte Esterase (Negative) Urine RBC (0-5) /hpf Urine WBC (0-5) /hpf Ur Squamous Epith Cells (0-4) /hpf Urine Bacteria (None) /hpf Hyaline Casts (0-2) /lpf Urine Mucus (None) /hpf
[2022-12-06 15:48] LABS: African American GFR (CKD) 58 (>60 ml/min/1.73 sqM); Anion Gap 10 mmol/L; Blood Urea Nitrogen 19 mg/dL (7-17); Calcium 8.6 mg/dL (8.4-10.2); Carbon Dioxide 24 mmol/L (22-30); Chloride 90 mmol/L (98-107); Glucose 90 mg/dL (74-99); Non-African American GFR(CKD) 51 (>60 ml/min/1.73 sqM); Sodium 124 mmol/L (137-145)
[2022-12-06] MEDS ORDERED: SODIUM CHLORIDE TAB 1 GM TAB PO STA (19:52)
[2022-12-06] MEDS: LORATADINE 10 MG TAB PO SCH (21:43)
[2022-12-06] MEDS: POTASSIUM CHLORIDE ER 20 MEQ TAB.ER PO SCH ×2 (21:43→22:30)
[2022-12-06] MEDS: ATORVASTATIN 10 MG TAB PO SCH (21:43)
[2022-12-06 22:22] LABS: African American GFR (CKD) 68 (>60 ml/min/1.73 sqM); Anion Gap 6 mmol/L; Blood Urea Nitrogen 16 mg/dL (7-17); Calcium 8.1 mg/dL (8.4-10.2); Carbon Dioxide 24 mmol/L (22-30); Chloride 94 mmol/L (98-107); Glucose 95 mg/dL (74-99); Non-African American GFR(CKD) 59 (>60 ml/min/1.73 sqM); Potassium 3.1 mmol/L (3.5-5.1); Sodium 124 mmol/L (137-145)
[2022-12-07 09:05] LABS: Blood Urea Nitrogen 13.5 mg/dL (9.0-27.0); Calcium 8.5 mg/dL (8.7-10.3); Carbon Dioxide 21.9 mmol/L (21.6-31.8); Chloride 96 mmol/L (96-109); Glucose 85 mg/dL (70-110); Potassium 3.8 mmol/L (3.5-5.5); Sodium 130 mmol/L (135-145)
[2022-12-07] MEDS: CHOLECALCIFEROL 25 MCG (1000 IU) TABLET PO SCH (09:08)
[2022-12-07] MEDS: HEPARIN SODIUM,PORCINE/PF 5,000 UNIT/0.5 ML SYRINGE SQ SCH ×2 (09:09→15:20)
[2022-12-07] MEDS: MORPHINE SULFATE 4 MG/ML SYRINGE IV PRN (09:09)
[2022-12-07] MEDS: ASCORBIC ACID 500 MG TAB PO SCH (09:09)
--- NOTE | 2022-12-07 09:29 | P.PN ---
Subjective Progress Note Date: 12/07/22 No new complaints today - denies dizziness. BPs high. Na improved to 130. Rec'd salt tab yesterday at 2100. Gen: in no apparent distress, resting comfortably in bed Eyes: PERRL, no scleral injection or icterus HENT: normocephalic, atraumatic, good hearing acuity, dry mucous membranes Neck: no tracheal deviation, full range of motion Resp: good air exchange, breathing comfortably with no accessory muscle use, no tactile fremitus, clear to auscultation bilaterally CVS: good distal perfusion x 4, no pitting edema, regular rate and rhythm GI: soft, NTTP, ND, no hepatosplenomegaly : no suprapubic tenderness, no CVAT, ha catheter not present MSK: no clubbing, no cyanosis, no noted contractures of extremities Skin: no noted rashes, petechiae; temperature of skin is appropriate Neuro: moving all extremities without signs of weakness, CN II-XII intact Psych: cooperative, euthymic mood, insight and judgment intact 77-year-old woman with medical history of hypertension, hyperlipidemia presented for knee pain, dizziness. In the emergency room, patient was afebrile, 101/55, heart rate 70, 99% on room air. CBC shows leukocytosis of 15.3. Basic metabolic panel shows sodium of 121, chloride of 86, BUN of 23, creatinine of 1.3. Liver function tests are unremarkable. Troponin is less than 0.012. Coags are unremarkable. UA was contaminated. Urine total protein was 16. Knee x-ray shows small to moderate joint effusion with degenerative changes of the left knee. Chest x-ray showed clear parenchyma bilaterally, normal sized heart, curvilinear density of the right lung which does not completely look like atelectasis. Case discussed the emergency room provider and she was made to admit the patient for further evaluation and management of hyponatremia. Assessment: Hyponatremia, hypovolemic, also related to HCTZ. Acute kidney injury, resolved Knee Pain Shoulder Pain Possible Lung mass Hypertension Hyperlipidemia Plan: Today, patient is afebrile, 177/74, heart rate 86, 93% on room air Basic metabolic panels from overnight reviewed, sodium went from 124-130, creatinine has improved from 1.04-0.9 urine sodium < 20, c/w hypovolemia Continue BMP q6h Discontinued patient's home tramadol, HCTZ, and enalpril for hyponatremia, and KRISTOFER respectively -now that KRISTOFER has resolved and BPs elevated, added lisinopril 10mg, consideration of amlodipine as next line agent Orthostatics BID ordered PT consult ordered Pain control: Tylenol PRN Continue normal saline at 75 mL per hour Pt is DNR/DNI DPOA is daughter DVT PPx with heparin TID Objective - Vital Signs Vital signs: Vital Signs Temp 99.0 F 12/07/22 06:55 Pulse 86 12/07/22 06:55 Resp 20 12/07/22 06:55 BP 177/74 12/07/22 06:55 Pulse Ox 93 L 12/07/22 08:18 FiO2 Intake & Output 12/06/22 12/07/22 12/07/22 18:59 06:59 18:59 Intake Total 118 120 Balance 118 120 Intake: Oral 118 120 Other: Voiding Method Bedside Commode # Voids 6 3 - Labs CBC & Chem 7: 12/05/22 11:57 12/07/22 04:10 Labs: Abnormal Lab Results - Last 24 Hours (Table) 12/05/22 12/06/22 12/06/22 Range/Units 12:57 04:26 14:44 Sodium 124 L 124 L (135-145) mmol/L Potassium 3.3 L 3.0 L (3.5-5.5) mmol/L Chloride 86 L 90 L (96-109) mmol/L Anion Gap 15.60 H (4.00-12.00) mmol/L BUN 19 H (7-17) mg/dL Creatinine 1.05 H (0.52-1.04) mg/dL Est GFR (CKD-EPI) 42 L (>=60) Calcium (8.4-10.2) mg/dL Ur Random Sodium <20 L (40-220) mmol/L 12/06/22 12/07/22 Range/Units 21:46 04:10 Sodium 124 L 130 L (135-145) mmol/L Potassium 3.1 L (3.5-5.5) mmol/L Chloride 94 L (96-109) mmol/L Anion Gap 12.10 H (4.00-12.00) mmol/L BUN (7-17) mg/dL Creatinine (0.52-1.04) mg/dL Est GFR (CKD-EPI) (>=60) Calcium 8.1 L 8.5 L (8.4-10.2) mg/dL Ur Random Sodium (40-220) mmol/L Microbiology - Last 24 Hours (Table) 12/05/22 12:57 Urine Culture - Final Urine,Voided Strep agalactiae - (group b)
[2022-12-07] MEDS: lisinopriL 10 MG TAB PO SCH (10:24)
[2022-12-07] MEDS: SODIUM CHLORIDE 0.9% 1,000 ML IV SCH ×2 (11:01→22:10)
--- NOTE | 2022-12-07 11:39 | P.PN ---
Subjective Patient is seen for follow-up for hyponatremia. Appears to be hypovolemic and currently maintained on normal saline. Urine osmolality 351 with random urine sodium less than 20. Serum sodium had stayed around 124 and she received a dose of sodium chloride tablet last night. Sodium this morning is up to 130. No significant complaints today. Working with physical therapy. Objective - Vital Signs Vital signs: Vital Signs Temp 99.0 F 12/07/22 06:55 Pulse 86 12/07/22 06:55 Resp 20 12/07/22 06:55 BP 177/74 12/07/22 06:55 Pulse Ox 93 L 12/07/22 08:18 FiO2 Intake & Output 12/06/22 12/07/22 12/07/22 18:59 06:59 18:59 Intake Total 118 120 Balance 118 120 Intake: Oral 118 120 Other: Voiding Method Bedside Commode # Voids 6 3 - Exam tient is awake, comfortable, no acute distress. Right arm is in sling. Examination of the heart S1 and S2 Examination of the lungs bilateral breath sounds are heard Abdomen is soft nontender Examination lower extremity shows no significant edema [employer] exam grossly intact - Labs CBC & Chem 7: 12/05/22 11:57 12/07/22 04:10 Labs: Abnormal Lab Results - Last 24 Hours (Table) 12/05/22 12/06/22 12/06/22 Range/Units 12:57 14:44 21:46 Sodium 124 L 124 L (137-145) mmol/L Potassium 3.0 L 3.1 L (3.5-5.1) mmol/L Chloride 90 L 94 L (98-107) mmol/L Anion Gap (4.00-12.00) mmol/L BUN 19 H (7-17) mg/dL Creatinine 1.05 H (0.52-1.04) mg/dL Calcium 8.1 L (8.4-10.2) mg/dL Ur Random Sodium <20 L (40-220) mmol/L 12/07/22 Range/Units 04:10 Sodium 130 L (137-145) mmol/L Potassium (3.5-5.1) mmol/L Chloride (98-107) mmol/L Anion Gap 12.10 H (4.00-12.00) mmol/L BUN (7-17) mg/dL Creatinine (0.52-1.04) mg/dL Calcium 8.5 L (8.4-10.2) mg/dL Ur Random Sodium (40-220) mmol/L Microbiology - Last 24 Hours (Table) 12/05/22 12:57 Urine Culture - Final Urine,Voided Strep agalactiae - (group b) Assessment and Plan Assessment: 1. Hyponatremia, appears hypovolemic. Maintained on normal saline. Patient was maintained on hydrochlorothiazide which will be discontinued on discharge. Status post sodium chloride tab last night with sodium up to 1:30 today. Continue to monitor sodium levels. Patient is also encouraged to increase oral intake. 2. Status post fall possibly related to some degree of hypotension/hypovolemia. Check orthostatics before restarting antihypertensive indications [place] 3. History of hypertension blood pressure currently on the lower side, maintained on AUDRA inhibitor's and thiazide diuretics at home 4. Right upper extremity fracture. X-rays/details not available 5. Hypertension with blood pressure initially on the lower side, currently high with systolic 177. Patient did receive a salt tablet last night. Lisinopril has been restarted. Plan: Continue with normal saline Encourage increased oral intake Avoid use of thiazide diuretics Continue to monitor serum sodium. Agree with restarting lisinopril.
--- NOTE | 2022-12-07 12:08 | XR ---
EXAMINATION TYPE: XR ankle complete RT DATE OF EXAM: 12/07/2022 COMPARISON: NONE HISTORY: Pain TECHNIQUE: Frontal, lateral and oblique images of the right ankle are obtained. COMPARISON: None. FINDINGS: There is no acute fracture/dislocation evident. The joint spaces appear within normal aguirre its. The overlying soft tissue appears unremarkable. IMPRESSION: There is no acute fracture or dislocation seen.
[2022-12-07 13:30] LABS: African American GFR (CKD) 76 (>60 ml/min/1.73 sqM); Anion Gap 6 mmol/L; Blood Urea Nitrogen 13 mg/dL (7-17); Calcium 8.3 mg/dL (8.4-10.2); Carbon Dioxide 24 mmol/L (22-30); Chloride 99 mmol/L (98-107); Glucose 115 mg/dL (74-99); Non-African American GFR(CKD) 66 (>60 ml/min/1.73 sqM); Potassium 4.1 mmol/L (3.5-5.1); Sodium 129 mmol/L (137-145)
[2022-12-07 18:24] LABS: African American GFR (CKD) 78 (>60 ml/min/1.73 sqM); Anion Gap 7 mmol/L; Blood Urea Nitrogen 13 mg/dL (7-17); Carbon Dioxide 22 mmol/L (22-30); Chloride 98 mmol/L (98-107); Glucose 147 mg/dL (74-99); Non-African American GFR(CKD) 68 (>60 ml/min/1.73 sqM); Potassium 3.4 mmol/L (3.5-5.1); Sodium 127 mmol/L (137-145)
[2022-12-07] MEDS ORDERED: POTASSIUM CHLORIDE ER 20 MEQ TAB.ER PO STA (18:52)
[2022-12-07] MEDS: ATORVASTATIN 10 MG TAB PO SCH (19:54)
[2022-12-07] MEDS: LORATADINE 10 MG TAB PO SCH (19:55)
[2022-12-07 23:37] LABS: African American GFR (CKD) 79 (>60 ml/min/1.73 sqM); Anion Gap 7 mmol/L; Blood Urea Nitrogen 13 mg/dL (7-17); Calcium 8.5 mg/dL (8.4-10.2); Carbon Dioxide 22 mmol/L (22-30); Chloride 98 mmol/L (98-107); Glucose 100 mg/dL (74-99); Non-African American GFR(CKD) 68 (>60 ml/min/1.73 sqM); Potassium 3.6 mmol/L (3.5-5.1); Sodium 127 mmol/L (137-145)
[2022-12-08] MEDS: HEPARIN SODIUM,PORCINE/PF 5,000 UNIT/0.5 ML SYRINGE SQ SCH ×3 (00:39→16:37)
[2022-12-08] MEDS: SODIUM CHLORIDE 0.9% 1,000 ML IV SCH ×2 (05:36→16:37)
[2022-12-08] MEDS: CHOLECALCIFEROL 25 MCG (1000 IU) TABLET PO SCH (07:52)
[2022-12-08] MEDS: ASCORBIC ACID 500 MG TAB PO SCH (07:52)
[2022-12-08] MEDS: lisinopriL 10 MG TAB PO SCH ×2 (07:52→20:39)
[2022-12-08] MEDS: MORPHINE SULFATE 4 MG/ML SYRINGE IV PRN (09:13)
--- NOTE | 2022-12-08 11:33 | P.PN ---
Subjective Patient is seen for follow-up for hyponatremia. Appears to be hypovolemic and currently maintained on normal saline. Urine osmolality 351 with random urine sodium less than 20. Serum sodium had stayed around 124 and she received a dose of sodium chloride tablet. Serum sodium improved to 130 yesterday morning and decrease back down to 127 last night. Blood pressure had increased with systolic around 150-1 70 mmHg post sodium chloride tab. No significant complaints today. Serum sodium at 127 this morning. Patient remains on normal saline. She is not eating much. Objective - Vital Signs Vital signs: Vital Signs Temp 98.3 F 12/08/22 06:57 Pulse 73 12/08/22 06:57 Resp 16 12/08/22 06:57 BP 154/76 12/08/22 06:57 Pulse Ox 95 12/08/22 08:56 FiO2 Intake & Output 12/07/22 12/08/22 12/08/22 18:59 06:59 18:59 Intake Total 960 180 Output Total 550 Balance 960 -370 Intake: Oral 960 180 Output: Urine 550 Other: # Voids 1 2 # Bowel Movements 1 1 - Exam tient is awake, comfortable, no acute distress. Right arm is in sling. Examination of the heart S1 and S2 Examination of the lungs bilateral breath sounds are heard Abdomen is soft nontender Examination lower extremity shows no significant edema TRACKMAN exam grossly intact - Labs CBC & Chem 7: 12/05/22 11:57 12/07/22 22:53 Labs: Abnormal Lab Results - Last 24 Hours (Table) 12/07/22 12/07/22 12/07/22 Range/Units 12:08 16:54 22:53 Sodium 129 L 127 L 127 L (137-145) mmol/L Potassium 3.4 L (3.5-5.1) mmol/L Glucose 115 H 147 H 100 H (74-99) mg/dL Calcium 8.3 L 8.0 L (8.4-10.2) mg/dL Assessment and Plan Assessment: 1. Hyponatremia, appears hypovolemic initially and responded to saline infusion. Serum sodium improved post sodium chloride tab however blood pressure was subsequently elevated. Oral intake is poor. I will recheck urine osmolality and random urine sodium. 2. Status post fall possibly related to some degree of hypotension/hypovolemia. Blood pressure is now elevated and patient has been restarted on lisinopril 3. History of hypertension blood pressure currently on the lower side, maintained on AUDRA inhibitor's and thiazide diuretics at home. Restarted lisinopril due to elevated blood pressure 4. Right upper extremity fracture. X-rays/details not available 5. Hypertension with blood pressure initially on the lower side, currently high with systolic 177. Patient did receive a salt tablet. Lisinopril has been restarted. Plan: Decrease IV fluids Continue to encourage increase oral intake particularly protein Increase lisinopril and repeat one dose of sodium chloride tab Repeat sodium this evening Repeat urine osmolality and random urine sodium.
[2022-12-08] MEDS ORDERED: SODIUM CHLORIDE TAB 1 GM TAB PO STA (11:34)
--- NOTE | 2022-12-08 14:48 | P.PN ---
Subjective Progress Note Date: 12/08/22 Hospital course: Patient is a pleasant 77-year-old female with a past medical history of hypertension, hyperlipidemia, and nicotine dependence. She presented to the emergency department on 12/05/22 secondary to a chief complaint of dizziness and left knee pain. Patient reports dizziness has resulted in falls and was even seen in the emergency department 2 nights prior secondary to fall which resulted in fractured upper extremity and discharge home in sling. Patient reports since this fall she has been having significant pain to her left knee, persistent di zziness, and inability to ambulate. Patient underwent full evaluation in our emergency department. CBC completed showing leukocytosis with WBC count of 15.3. BMP revealing hyponatremia with sodium of 121, hypochloremia with chloride of 86, and an acute kidney injury with BUN of 23, creatinine 1.30, and GFR of 39. Urinalysis contaminated. EKG was completed showing normal sinus rhythm at 72 bpm with nonspecific T-wave abnormalities, no ST abnormalities showing no signs of acute ischemia at this time upon personal review and interpretation. X-ray left knee completed in radiology report reviewed stating degenerative joint changes throughout the left knee greatest in the medial compartment, small to moderate joint effusion, and negative for acute osseous abnormality. Chest x-ray completed in radiology report reviewed concerning for left basilar atelectasis or pneumonia with curvy linear density in the right lung base. CT chest completed negative for acute cardiopulmonary process cindi wing chronic changes in the lung bases with mild coarse interstitial fibrosis of lung bases bilaterally. Patient was admitted under our services for hyponatremia and acute kidney injury and orthopedic surgery and nephrology were consulted for evaluation. Physical exam: Patient seen in place evaluated at bedside this morning. Daughter also at bedside. Patient currently reports mild pain discomfort and right arm, but states it is currently controlled with pain medication, morphine recently administered. Vital signs reviewed and stable. General: Nontoxic, no distress and appears stated age. Derm: Skin warm and dry, normal coloration for ethnicity. Head: Atraumatic, normocephalic and symmetric. Eyes: EOMs intact, no lid lag, and anicteric sclera Mouth: no lip lesions, mucus membranes moist Cardiovascular: regular rate and rhythm with normal S1S2, systolic murmur, positive posterior tibial pulses bilaterally, and cap refill < 2 seconds. Lungs: Respirations even, regular, and unlabored on room air. Lungs CTA bilaterally, no rhonchi, no rales, no wheezing, and no accessory muscle usage. Abdominal: soft, nontender to palpation, no guarding, no appreciable organomegaly Ext: ROM intact. No gross muscle atrophy, no edema, sling in place right arm. Movement and sensation intact. Patient with moderate bruising to right upper extremity. Neuro: Speech clear, face symmetrical and CN II-XII grossly intact with no noted focal neuro deficits Psych: Alert and oriented to person, place, time, and situation. Appropriate and pleasant affect. Assessment and Plan of Care: Hyponatremia, hypovolemic, also related to HCTZ. Strep agalactiae group B UTI Acute kidney injury, resolved Hypokalemia, resolved Left Knee Pain Right Shoulder Pain status post recent humeral fracture Suspected Lung mass. ruled out CT showing pulmonary fibrosis ruling out mass Hypertension Hyperlipidemia -Morning labs reviewed.. BMP revealing continued hyponatremia with sodium of 127, resolution of hypokalemia with potassium increasing to 3.6 from previous 3.4 and stable renal function with BUN 13, creatinine 0.82, and GFR of 68. -Urine culture resulting positive for Strep agalactiae (group b). Will start patient on IV antibiotic Rocephin and plan to discharge patient on oral antibiotic penicillin G to complete treatment course. -Telegraph Mechanic following, discussed plan of care. She placed order for an additional doses of sodium chloride tab, increase lisinopril to 10 mg twice daily, and decreased IV fluids to 50 mL per hour. -Order placed for protein supplements 3 times daily between meals. -Discussed with patient need for increased oral intake in order placed for dietary consult. -Continue to hold tramadol and hydrochlorothiazide. -Continue Orthostatics BID ordered -Physical and occupational therapy following, recommending discharge to subacute rehab for therapy. -Patient's daughter brought disc in from [facility], sent to radiology to be uploaded into our system for review -Continue with Pain control: Tylenol 650 mg by mouth every 6 hours as needed for [id number] pain and morphine 4 mg IV every 4 hours as needed for severe pain Data review: -Urine culture reviewed and resulting positive for Strep agalactiae (group b) -Morning labs reviewed.. BMP revealing continued hyponatremia with sodium of 127, resolution of hypokalemia with potassium increasing to 3.6 from previous 3.4 and stable renal function with BUN 13, creatinine 0.82, and GFR of 68. Imaging results: -No new imaging to review at this time however, Patient's daughter brought disc in from [facility], sent to radiology to be uploaded into our system for review CODE STATUS: DO NOT RESUSCITATE/DO NOT INTUBATE DVT prophylaxis: Heparin Discussed with: Patient, patient's daughter and RN Anticipated discharge date: Clinical course to determine, insurance authorization has been approved starting on 12/09/22 for [address]: [facility] Patient was seen independently by Nurse Pracitioner. This document was prepared using [employer] dictation software. Please allow for errors in stone dresser, while rare they do occur. Objective - Vital Signs Vital signs: Vital Signs Temp 98.3 F 12/08/22 06:57 Pulse 73 12/08/22 06:57 Resp 16 12/08/22 06:57 BP 154/76 12/08/22 06:57 Pulse Ox 95 12/08/22 08:56 FiO2 Intake & Output 12/07/22 12/08/22 12/08/22 18:59 06:59 18:59 Intake Total 960 180 Output Total 550 Balance 960 -370 Intake: Oral 960 180 Output: Urine 550 Other: # Voids 1 2 # Bowel Movements 1 1 - Labs CBC & Chem 7: 12/05/22 11:57 12/07/22 22:53 Labs: Abnormal Lab Results - Last 24 Hours (Table) 12/07/22 12/07/22 12/07/22 Range/Units 04:10 12:08 16:54 Sodium 130 L 129 L 127 L (135-145) mmol/L Potassium 3.4 L (3.5-5.1) mmol/L Anion Gap 12.10 H (4.00-12.00) mmol/L Glucose 115 H 147 H (74-99) mg/dL Calcium 8.5 L 8.3 L 8.0 L (8.7-10.3) mg/dL 12/07/22 Range/Units 22:53 Sodium 127 L (135-145) mmol/L Potassium (3.5-5.1) mmol/L Anion Gap (4.00-12.00) mmol/L Glucose 100 H (74-99) mg/dL Calcium (8.7-10.3) mg/dL
[2022-12-08 16:25] LABS: African American GFR (CKD) >90 (>60 ml/min/1.73 sqM); Anion Gap 8 mmol/L; Blood Urea Nitrogen 13 mg/dL (7-17); Calcium 8.6 mg/dL (8.4-10.2); Carbon Dioxide 23 mmol/L (22-30); Chloride 100 mmol/L (98-107); Glucose 93 mg/dL (74-99); Magnesium 1.6 mg/dL (1.6-2.3); Non-African American GFR(CKD) 81 (>60 ml/min/1.73 sqM); Potassium 3.6 mmol/L (3.5-5.1); Sodium 131 mmol/L (137-145)
[2022-12-08 16:28] LABS: HCT 32.1 % (34.0-46.0); HGB 10.6 gm/dL (11.4-16.0); MCH 28.7 pg (25.0-35.0); MCHC 33.1 g/dL (31.0-37.0); MCV 86.9 fL (80.0-100.0); Mean Platelet Volume 7.7; Platelet Count 431 k/uL (150-450); RBC 3.69 m/uL (3.80-5.40); RDW 13.4 % (11.5-15.5); WBC 7.9 k/uL (3.8-10.6)
[2022-12-08] MEDS: LORATADINE 10 MG TAB PO SCH (20:38)
[2022-12-08] MEDS: ATORVASTATIN 10 MG TAB PO SCH (20:38)
[2022-12-09] MEDS: HEPARIN SODIUM,PORCINE/PF 5,000 UNIT/0.5 ML SYRINGE SQ SCH ×4 (00:43→23:46)
[2022-12-09] MEDS: CHOLECALCIFEROL 25 MCG (1000 IU) TABLET PO SCH (08:27)
[2022-12-09] MEDS: ASCORBIC ACID 500 MG TAB PO SCH (08:27)
[2022-12-09] MEDS: lisinopriL 10 MG TAB PO SCH ×2 (08:27→19:55)
--- NOTE | 2022-12-09 12:23 | P.PN ---
Subjective Patient is seen for follow-up for hyponatremia. Appears to be hypovolemic and currently maintained on normal saline. Urine osmolality 351 with random urine sodium less than 20. Serum sodium had stayed around 124 and she received a dose of sodium chloride tablet. Serum sodium improved to 131 today Blood pressure Is on the higher side post sodium chloride tab. No significant complaints today. saline decreased to 50 mL an hour yesterday. Urine osmolality at 446. Objective - Vital Signs Vital signs: Vital Signs Temp 98.0 F 12/09/22 08:00 Pulse 76 12/09/22 08:00 Resp 18 12/09/22 08:00 BP 156/83 12/09/22 08:00 Pulse Ox 96 12/09/22 08:00 FiO2 Intake & Output 12/08/22 12/09/22 12/09/22 18:59 06:59 18:59 Intake Total 960 Output Total 100 Balance 960 -100 Intake: Oral 960 Output: Urine 100 Other: Voiding Method External Catheter External Catheter # Voids 3 1 # Bowel Movements 1 - Exam tient is awake, comfortable, no acute distress. Right arm is in sling. Examination of the heart S1 and S2 Examination of the lungs bilateral breath sounds are heard Abdomen is soft nontender Examination lower extremity shows no significant edema PRODUCT DESIGN SPECIALIST exam grossly intact - Labs CBC & Chem 7: 12/08/22 15:59 12/08/22 15:59 Labs: Abnormal Lab Results - Last 24 Hours (Table) 12/08/22 12/08/22 Range/Units 15:59 15:59 RBC 3.69 L (3.80-5.40) m/uL Hgb 10.6 L (11.4-16.0) gm/dL Hct 32.1 L (34.0-46.0) % Sodium 131 L (137-145) mmol/L Assessment and Plan Assessment: 1. Hyponatremia, appears hypovolemic initially and responded to saline infusion. Serum sodium improved post sodium chloride tab however blood pressure was subsequently elevated. Oral intake is poor. repeat urine osmolality at 446. IV fluids were decreased to 50 ML per hour. Sodium is 131 today. 2. Status post fall possibly related to some degree of hypotension/hypovolemia. Blood pressure is now elevated and patient has been restarted on lisinopril 3. History of hypertension blood pressure currently on the lower side, maintained on AUDRA inhibitor's and thiazide diuretics at home. Restarted lisinopril due to elevated blood pressure 4. Right upper extremity fracture. X-rays/details not available 5. Hypertension with blood pressure initially on the lower side, currently high with systolic 177. Patient did receive a salt tablet. Lisinopril has been restarted. Plan: DC IV fluids Encouraged to maintain good oral intake.
[2022-12-09 14:18] VITALS: BMI 22.7
[2022-12-09 15:38] LABS: HCT 30.3 % (37.2-46.3); HGB 9.7 d/dL (12.0-15.0); MCV 87.6 FL (80.0-97.0); Mean Platelet Volume 9.5 FL (9.5-12.2); NRBC Per 100 WBC 0 X 10*3/uL (0.00-0.01); Platelet Count 440 X 10*3/uL (140-440); RBC 3.46 X 10*6/uL (4.10-5.20); RDW 13.6 % (11.5-14.5); WBC 9.01 X 10*3/uL (4.50-10.00)
[2022-12-09 16:05] LABS: Blood Urea Nitrogen 12.4 mg/dL (9.0-27.0); Calcium 8.9 mg/dL (8.7-10.3); Carbon Dioxide 22.7 mmol/L (21.6-31.8); Chloride 97 mmol/L (96-109); Glucose 101 mg/dL (70-110); Magnesium 1.5 mg/dL (1.5-2.4); Potassium 3.9 mmol/L (3.5-5.5); Sodium 133 mmol/L (135-145)
--- NOTE | 2022-12-09 18:50 | P.PN ---
Subjective Progress Note Date: 12/09/22 Hospital course: Patient is a pleasant 77-year-old female with a past medical history of hypertension, hyperlipidemia, and nicotine dependence. She presented to the emergency department on 12/05/22 secondary to a chief complaint of dizziness and left knee pain. Patient reports dizziness has resulted in falls and was even seen in the emergency department 2 nights prior secondary to fall which resulted in fractured upper extremity and discharge home in sling. Patient reports since this fall she has been having significant pain to her left knee, persistent di zziness, and inability to ambulate. Patient underwent full evaluation in our emergency department. CBC completed showing leukocytosis with WBC count of 15.3. BMP revealing hyponatremia with sodium of 121, hypochloremia with chloride of 86, and an acute kidney injury with BUN of 23, creatinine 1.30, and GFR of 39. Urinalysis contaminated. EKG was completed showing normal sinus rhythm at 72 bpm with nonspecific T-wave abnormalities, no ST abnormalities showing no signs of acute ischemia at this time upon personal review and interpretation. X-ray left knee completed in radiology report reviewed stating degenerative joint changes throughout the left knee greatest in the medial compartment, small to moderate joint effusion, and negative for acute osseous abnormality. Chest x-ray completed in radiology report reviewed concerning for left basilar atelectasis or pneumonia with curvy linear density in the right lung base. CT chest completed negative for acute cardiopulmonary process cindi wing chronic changes in the lung bases with mild coarse interstitial fibrosis of lung bases bilaterally. Patient was admitted under our services for hyponatremia and acute kidney injury and orthopedic surgery and nephrology were consulted for evaluation. Physical exam: Patient seen in place evaluated at bedside this morning. Reports feeling great this morning. Patient denies having any complaints at this time. Discussed with patient awaiting clearance by nephrology and likely plan for discharge to intermediate facility tomorrow morning. Vital signs reviewed and stable. General: Nontoxic, no distress and appears stated age. Derm: Skin warm and dry, normal coloration for ethnicity. Head: Atraumatic, normocephalic and symmetric. Eyes: EOMs intact, no lid lag, and anicteric sclera Mouth: no lip lesions, mucus membranes moist Cardiovascular: regular rate and rhythm with normal S1S2, systolic murmur, positive posterior tibial pulses bilaterally, and cap refill < 2 seconds. Lungs: Respirations even, regular, and unlabored on room air. Lungs CTA bilaterally, no rhonchi, no rales, no wheezing, and no accessory muscle usage. Abdominal: soft, nontender to palpation, no guarding, no appreciable organomegaly Ext: ROM intact. No gross muscle atrophy, no edema, sling in place right arm. Movement and sensation intact. Patient with moderate bruising to right upper extremity. Neuro: Speech clear, face symmetrical and CN II-XII grossly intact with no noted focal neuro deficits Psych: Alert and oriented to person, place, time, and situation. Appropriate and pleasant affect. Assessment and Plan of Care: Hyponatremia, hypovolemic, also related to HCTZ. Strep agalactiae group B UTI Acute kidney injury, resolved Hypokalemia, resolved Left Knee Pain Right Shoulder Pain status post recent humeral fracture Suspected Lung mass. ruled out CT showing pulmonary fibrosis ruling out mass Hypertension Hyperlipidemia -Urine culture resulting positive for Strep agalactiae (group b). Continue IV antibiotic Rocephin and plan to discharge patient on oral antibiotic penicillin G to complete treatment course. -Computed Tomography Scanner Operator following, reviewed documentation in chart. -Continue protein supplements 3 times daily between meals. -Continue to hold tramadol and hydrochlorothiazide. -Physical and occupational therapy following, recommending discharge to subacute rehab for therapy. -Continue with Pain control: Tylenol 650 mg by mouth every 6 hours as needed for [id number] pain and morphine 4 mg IV every 4 hours as needed for severe pain Data review: -Urine culture reviewed and resulting positive for Strep agalactiae (group b) -Morning labs reviewed. BMP revealing continued improvement of sodium levels with morning sodium 133. CBC stable with hemoglobin of 9.7. Imaging results: -No new imaging to review at this time however, Patient's daughter brought disc in from [facility], sent to radiology to be uploaded into our system for review CODE STATUS: DO NOT RESUSCITATE/DO NOT INTUBATE DVT prophylaxis: Heparin Discussed with: Patient, patient's daughter and RN Anticipated discharge date: Likely tomorrow morning. insurance authorization has been approved starting on 12/09/22 for [address]: [facility] Patient was seen independently by Nurse Pracitioner. This document was prepared using [employer] dictation software. Please allow for errors in progress clerk, while rare they do occur. Objective - Vital Signs Vital signs: Vital Signs Temp 98.0 F 07/05/23 08:00 Pulse 76 12/09/22 08:00 Resp 18 12/09/22 08:00 BP 156/83 12/09/22 08:00 Pulse Ox 96 12/09/22 08:00 FiO2 Intake & Output 12/08/22 12/09/22 12/09/22 18:59 06:59 18:59 Intake Total 960 Output Total 100 Balance 960 -100 Intake: Oral 960 Output: Urine 100 Other: Voiding Method External Catheter # Voids 3 1 # Bowel Movements 1 - Labs CBC & Chem 7: 12/09/22 09:05 12/09/22 09:05 Labs: Abnormal Lab Results - Last 24 Hours (Table) 12/08/22 12/08/22 Range/Units 15:59 15:59 RBC 3.69 L (3.80-5.40) m/uL Hgb 10.6 L (11.4-16.0) gm/dL Hct 32.1 L (34.0-46.0) % Sodium 131 L (137-145) mmol/L
[2022-12-09] MEDS: ATORVASTATIN 10 MG TAB PO SCH (19:55)
[2022-12-09] MEDS: LORATADINE 10 MG TAB PO SCH (19:55)
[2022-12-09 19:58] VITALS: RESP 18
[2022-12-10 07:41] VITALS: BP 166/72; PULSE 76; TEMP 98
[2022-12-10] MEDS: HEPARIN SODIUM,PORCINE/PF 5,000 UNIT/0.5 ML SYRINGE SQ SCH (08:00)
[2022-12-10] MEDS: CHOLECALCIFEROL 25 MCG (1000 IU) TABLET PO SCH (08:20)
[2022-12-10] MEDS: lisinopriL 10 MG TAB PO SCH (08:20)
[2022-12-10] MEDS: ASCORBIC ACID 500 MG TAB PO SCH (08:20)
--- NOTE | 2022-12-10 11:04 | P.DS ---
Providers Date of admission: 12/05/22 13:04 Expected date of discharge: 12/10/22 Attending physician: Jose E Morgan MD Consults: 12/05/22 15:14 Consult Physician Routine Consulting Provider: Mecca Sarkar Consult Reason/Comments: hyponatremia Do you want consulting provider notified?: Yes Primary care physician: oNlan Roberts Hospital Course: Discharge Diagnosis: Hyponatremia, hypovolemic, secondary to HCTZ. Significantly improved. Sodium 133 upon discharge. Hydrochlorothiazide was discontinued. Strep agalactiae group B UTI. Patient received a three-day course of IV antibiotics with Rocephin and discharged on Keflex 500 mg every 6 hours for an additional 2 days to total a treatment course of 5 days of antibiotic therapy. Acute kidney injury, resolved. Hypokalemia, resolved. Left Knee Pain, improved. Imaging negative. Orthopedic surgery evaluated clearing patient from their standpoint for discharge. Right Shoulder Pain status post recent humeral fracture. Patient to follow up outpatient with orthopedic surgery. Instructed nonweightbearing right arm and maintain in sling pending further recommendations from her orthopedic surgeon. Pulmonary fibrosis. Hypertension Hyperlipidemia Hospital Course: Patient is a pleasant 77-year-old female with a past medical history of hypertension, hyperlipidemia, and nicotine dependence. She presented to the emergency department on 12/05/22 secondary to a chief complaint of dizziness and left knee pain. Patient reports dizziness has resulted in falls and was even seen in the emergency department 2 nights prior secondary to fall which resulted in fractured upper extremity and discharge home in sling. Patient reports since this fall she has been having significant pain to her left knee, persistent dizziness, and inability to ambulate. Patient underwent full evaluation in our emergency department. CBC completed showing leukocytosis with WBC count of 15.3. BMP revealing hyponatremia with sodium of 121, hypochloremia with chloride of 86, and an acute kidney injury with BUN of 23, creatinine 1.30, and GFR of 39. Urinalysis contaminated. EKG was completed showing normal sinus rhythm at 72 bpm with nonspecific T-wave abnormalities, no ST abnormalities showing no signs of acute ischemia at this time upon personal review and interpretation. X-ray left knee completed in radiology report reviewed stating degenerative joint changes throughout the left knee greatest in the medial compartment, small to moderate joint effusion, and negative for acute osseous abnormality. Chest x-ray completed in radiology report reviewed concerning for left basilar atelectasis or pneumonia with curvy linear density in the right lung base. CT chest completed negative for acute cardiopulmonary process showing chronic changes in the lung bases with mild coarse interstitial fibrosis of lung bases bilaterally. Patient was admitted under our services for hyponatremia and acute kidney injury and orthopedic surgery and nephrology were consulted for evaluation. Urine culture resulting positive for Strep agalactiae (group b). Patient received a three-day course of IV antibiotics with Rocephin and discharged on Keflex 500 mg every 6 hours for an additional 2 days to total a treatment course of 5 days of antibiotic therapy. Patient was evaluated by orthopedic surgery, physical therapy, and occupational therapy. Patient being discharged to [facility] based upon these recommendatio ns. Patient medically stable for discharge at this time. Physical exam: Vital signs reviewed and stable. General: Nontoxic, no distress and appears stated age. Derm: Skin warm and dry, normal coloration for ethnicity. Head: Atraumatic, normocephalic and symmetric. Eyes: EOMs intact, no lid lag, and anicteric sclera Mouth: no lip lesions, mucus membranes moist Cardiovascular: regular rate and rhythm with normal S1S2, systolic murmur, positive posterior tibial pulses bilaterally, and cap refill < 2 seconds. Lungs: Respirations even, regular, and unlabored on room air. Lungs CTA bilaterally, no rhonchi, no rales, no wheezing, and no accessory muscle usage. Abdominal: soft, nontender to palpation, no guarding, no appreciable organomegaly Ext: ROM intact. No gross muscle atrophy, no edema, sling in place right arm. Movement and sensation intact. Patient with moderate bruising to right upper extremity. Neuro: Speech clear, face symmetrical and CN II-XII grossly intact with no noted focal neuro deficits Psych: Alert and oriented to person, place, time, and situation. Appropriate and pleasant affect. A total of 36 minutes of time were spent preparing this complex discharge summary. Pt was discharged on 12/10/22 at 9:45 AM. Patient was seen independently by Nurse Practitioner. This document was prepared using [employer] dictation software. Please allow for errors in rock singer while rare they do occur. Patient Condition at Discharge: Stable Plan - Discharge Summary Discharge Rx Participant: Yes New Discharge Prescriptions: New lisinopriL [Zestril] 10 mg PO BID tab Cephalexin [Keflex] 500 mg PO Q6HR 2 Days #8 cap Acetaminophen Tab [Tylenol] 650 mg PO Q6HR PRN tab PRN Reason: Mild Pain Or Fever > 100.5 Continue Simvastatin [Zocor] 10 mg PO HS Cetirizine HCl [Zyrtec] 10 mg PO HS Turmeric Root Extract [Turmeric] 500 mg PO DAILY traMADol HCL 50 mg PO Q8H PRN #6 tab PRN Reason: Pain Prevagen Supplement 1 tab PO DAILY Ubidecarenone [Co Q-10] 200 mg PO DAILY Cholecalciferol [Vitamin D3 (25 Mcg = 1000 Iu)] 50 mcg PO DAILY Ascorbic Acid [Vitamin C] 500 mg PO DAILY Discontinued Enalapril/Hydrochlorothiazide [Enalapril/Hydrochlorothiazide 10-25 mg Tablet] 1 tab PO DAILY Discharge Medication List Ascorbic Acid [Vitamin C] 500 mg PO DAILY 07/22/22 [History] Cetirizine HCl [Zyrtec] 10 mg PO HS 07/22/22 [History] Cholecalciferol [Vitamin D3 (25 Mcg = 1000 Iu)] 50 mcg PO DAILY 07/22/22 [History] Prevagen Supplement 1 tab PO DAILY 07/22/22 [History] Simvastatin [Zocor] 10 mg PO HS 07/22/22 [History] Turmeric Root Extract [Turmeric] 500 mg PO DAILY 07/22/22 [History] Ubidecarenone [Co Q-10] 200 mg PO DAILY 07/22/22 [History] Acetaminophen Tab [Tylenol] 650 mg PO Q6HR PRN tab 12/10/22 [Rx] Cephalexin [Keflex] 500 mg PO Q6HR 2 Days #8 cap 12/10/22 [Rx] lisinopriL [Zestril] 10 mg PO BID tab 12/10/22 [Rx] traMADol HCL 50 mg PO Q8H PRN #6 tab 12/10/22 [Rx] Follow up Appointment(s)/Referral(s): Nolan Roberts MD [Primary Care Provider] - 1-2 days Megan Holliday [NON-STAFF] - As Needed Leobardo Sampson DO [Doctor of Osteopathic Medicine] - As Needed Activity/Diet/Wound Care/Special Instructions: Activity: As tolerated. Continue non-weight bearing of right upper extremity, keep in sling until further instructed by orthopedic surgeon. Diet: Regular diet. Special Instructions: Take all of your medications as directed and remember to keep all of your doctor's appointments and follow-up as needed. You will need to follow up outpatient with your orthopedic surgeon from [facility] for follow-up and further management of your right humeral fracture. Thank you for allowing us to participate in your care, it was truly a pleasure having you for our patient!!! Discharge Disposition: TRANSFER TO SNF/ECF
== END 2022-12-10 13:52 | DRG 641 ==
LOC: EC 10:34 → 4SSUR 13:04
PROVIDERS: ADMIT Internal Medicine; ATTEND Internal Medicine
DX: E87.1 Hypo-osmolality and hyponatremia (principal); N17.9 Acute kidney failure, unspecified; S42.301A Unspecified fracture of shaft of humerus, right arm, initial encounter for closed fracture; N39.0 Urinary tract infection, site not specified; J84.10 Pulmonary fibrosis, unspecified; B95.1 Streptococcus, group B, as the cause of diseases classified elsewhere; E86.1 Hypovolemia; T50.2X5A Adverse effect of carbonic-anhydrase inhibitors, benzothiadiazides and other diuretics, initial encounter; Z66 Do not resuscitate; E78.5 Hyperlipidemia, unspecified; E87.6 Hypokalemia; I10 Essential (primary) hypertension; M17.12 Unilateral primary osteoarthritis, left knee; E87.8 Other disorders of electrolyte and fluid balance, not elsewhere classified; R91.8 Other nonspecific abnormal finding of lung field; F17.210 Nicotine dependence, cigarettes, uncomplicated; Z71.6 Tobacco abuse counseling; Z79.899 Other long term (current) drug therapy; W19.XXXA Unspecified fall, initial encounter; Z88.5 Allergy status to narcotic agent
CPT/HCPCS: 36415; 71046; 71250; 80048; 80053; 81001; 82570; 83605; 83735; 83930; 83935; 84156; 84300; 84443; 84484; 85025; 85027; 85610; 85730; 87086; 93005; 94760; 96372; 96374; 99285

== ENCOUNTER 2023-07-14 15:41 | Emergency (ER) | payer MEDICARE ==
--- NOTE | 2023-07-14 16:12 | ED ---
Fall HPI - General Chief Complaint: Fall Stated Complaint: fall Time Seen by Provider: 07/14/23 15:52 Source: patient, family, RN notes reviewed Mode of arrival: ambulatory - History of Present Illness Initial Comments: Patient is an 78-year-old female presented to ER with chief complaint of a fall. 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 Patient denies any loss of conscious. Patient does take a baby aspirin daily. Patient denies any other injuries. Denies any dizziness, lightheadedness, chest pain, shortness of breath prior to fall. Patient's tetanus vaccination is unknown. - Related Data Home Medications Medication Instructions Recorded Confirmed Cetirizine HCl [Zyrtec] 10 mg PO HS 07/22/22 07/14/23 Simvastatin [Zocor] 10 mg PO DAILY 07/22/22 07/14/23 Aspirin EC [Ecotrin Low Dose] 81 mg PO HS 07/14/23 07/14/23 Donepezil [Aricept] 5 mg PO HS 07/14/23 07/14/23 Previous Rx's Medication Instructions Recorded lisinopriL [Zestril] 10 mg PO BID tab 12/10/22 Allergies Allergy/AdvReac Type Severity Reaction Status Date / Time codeine Allergy Confusion Verified 07/14/23 16:20 Review of Systems ROS Statement: Those systems with pertinent positive or pertinent negative responses have been documented in the HPI. ROS Other: All systems not noted in ROS Statement are negative. Past Medical History Past Medical History: Hyperlipidemia, Hypertension, Osteoarthritis (OA) Additional Past Medical History / Comment(s): hemorrhoids w/ prolapse History of Any Multi-Drug Resistant Organisms: None Reported Past Surgical History: Appendectomy, Back Surgery Additional Past Surgical History / Comment(s): spinal surgery to remove cysts Past Anesthesia/Blood Transfusion Reactions: No Reported Reaction Additional Past Anesthesia/Blood Transfusion Reaction / Comment(s): no hx blood transfusion Past Psychological History: No Psychological Hx Reported Smoking Status: Current every day smoker Past Alcohol Use History: None Reported Past Drug Use History: None Reported - Past Family History Mother Family Medical History: No Reported History General Exam Limitations: no limitations General appearance: alert, in no apparent distress Head exam: Present: atraumatic, normocephalic, normal inspection Eye exam: Present: normal appearance, PERRL, EOMI. Absent: scleral icterus, conjunctival injection, periorbital swelling Pupils: Present: normal accommodation ENT exam: Present: normal exam, normal oropharynx, mucous membranes moist Neck exam: Present: normal inspection. Absent: tenderness, meningismus, lymphadenopathy Respiratory exam: Present: normal lung sounds bilaterally. Absent: respiratory distress, wheezes, rales, rhonchi, stridor Cardiovascular Exam: Present: regular rate, normal rhythm, normal heart sounds. Absent: systolic murmur, diastolic murmur, rubs, gallop, clicks Extremities exam: Present: normal inspection, full ROM, normal capillary refill. Absent: tenderness, pedal edema, joint swelling, calf tenderness Neurological exam: Present: alert, oriented X3, CN II-XII intact Psychiatric exam: Present: normal affect, normal mood Skin exam: Present: warm, dry, normal color, abrasion (Right forehead and cheek. No active bleeding) Course Vital Signs 07/14/23 15:43 Temperature 97.9 F Pulse Rate 73 Respiratory 20 Rate Blood Pressure 166/76 O2 Sat by Pulse 98 Oximetry Medical Decision Making - Medical Decision Making Was pt. sent in by a medical professional or institution (, PA, STIFF STRAW HAT WASHER, urgent care, hospital, or detention...) When possible be specific @ -No Did you speak to anyone other than the patient for history (EMS, parent, family, police, friend...)? What history was obtained from this source @ -No Did you review nursing and triage notes (agree or disagree)? Why? @ -I reviewed and agree with nursing and triage notes Were old charts reviewed (outside hosp., previous admission, EMS record, old EKG, old radiological studies, urgent care reports/EKG's, detention records)? Report findings @ -No old charts were reviewed Differential Diagnosis (chest pain, altered mental status, abdominal pain women, abdominal pain men, vaginal bleeding, weakness, fever, dyspnea, syncope, headache, dizziness, GI bleed, back pain, seizure, CVA, palpatations, mental health, musculoskeletal)? @ -Differential Headache:Migraine, tension, cluster, carbon monoxide, central venous thrombosis, pension karma temporal arteritis, acute closure glaucoma, intercranial hemorrhage, mastoiditis, sinusitis, head injury, this is not meant to be an all-inclusive list. EKG interpreted by me (3pts min.). @ -None X-rays interpreted by me (1pt min.). @ -None done CT interpreted by me (1pt min.). @ -[CT brain C-spine interpreted by me shows no acute process. U/S interpreted by me (1pt. min.). @ -None done What testing was considered but not performed or refused? (CT, X-rays, U/S, labs)? Why? @ -None What meds were considered but not given or refused? Why? @ -None Did you discuss the management of the patient with other professionals (professionals i.e. , PA, STIFF STRAW HAT WASHER, lab, RT, psych nurse, social science professor, retail team member, teacher, global safety officer, supervisor case loading)? Give summary @ -No Was smoking cessation discussed for >3mins.? @ -No Was critical care preformed (if so, how long)? @ -No Were there social determinants of health that impacted care today? How? (Homelessness, low income, unemployed, alcoholism, drug addiction, transportation, low edu. Level, literacy, decrease access to med. care, penitentiary, rehab)? @ -No Was there de-escalation of care discussed even if they declined (Discuss DNR or withdrawal of care, Hospice)? DNR status @ -No What co-morbidities impacted this encounter? (DM, HTN, Smoking, COPD, CAD, Cancer, CVA, ARF, Chemo, Hep., AIDS, mental health diagnosis, sleep apnea, morbid obesity)? @ -None Was patient admitted / discharged? Hospital course, mention meds given and route, prescriptions, significant lab abnormalities, going to OR and other pertinent info. @ -Discharge. Patient is an 78-year-old female presenting to ER with chief complaint of a head injury. Patient denies any chest pain, shortness of breath, dizziness, lightheadedness prior to event. History and physical exam were completed. Vital stable. Patient in no signs of acute distress. No acute neurological findings on exam. Patient did have abrasions and contusions noted to right face. CT brain C-spine negative for acute intracranial process. Discussed imaging findings with patient and family at bedside. Return parameters were discussed. Patient be discharged stable condition with follow- up to PCP. Patient's expressed understanding and agreement with care plan. Undiagnosed new problem with uncertain prognosis? @ -No Drug Therapy requiring intensive monitoring for toxicity (Heparin, Nitro, Insulin, Cardizem)? @ -No Were any procedures done? @ -No Diagnosis/symptom? @ -Head injury/hematoma Acute, or Chronic, or Acute on Chronic? @ -Acute Uncomplicated (without systemic symptoms) or Complicated (systemic symptoms)? @ -Uncomplicated Side effects of treatment? @ -No Exacerbation, Progression, or Severe Exacerbation? @ -No Poses a threat to life or bodily function? How? (Chest pain, USA, SC, pneumonia, PE, COPD, DKA, ARF, appy, cholecystitis, CVA, Diverticulitis, Homicidal, Suicidal, threat to staff... and all critical care pts) @ -No - Radiology Data Radiology results: report reviewed, image reviewed Disposition Clinical Impression: Head injury, Hematoma and contusion Disposition: HOME SELF-CARE Condition: Stable Instructions (If sedation given, give patient instructions): Fall Prevention for Older Adults (ED) Additional Instructions: Please return to the ER for any new or worsening symptoms. Is patient prescribed a controlled substance at d/c from ED?: No Referrals: Daryl Roberts MD [Primary Care Provider] - 1-2 days Time of Disposition: 17:20
[2023-07-14 16:13] VITALS: TEMP 97.9
[2023-07-14] MEDS: DIPH,PERTUS(ACELL)TETVAC-LF 0.5 ML VIAL IM ONE (16:19)
--- NOTE | 2023-07-14 16:55 | CT ---
EXAMINATION TYPE: CT brain cspine wo con CT DLP: 1288.2 mGycm, Automated exposure control for dose reduction was used. DATE OF EXAM: 07/14/2023 4:34 PM COMPARISON: None. CLINICAL INDICATION:Female, 78 years old with history of head injury; Fall, trauma to RT side. TECHNIQUE: Brain: Multiple axial CT images of the brain were obtained without IV contrast. Cspine: Axial CT images from the skull base to the inferior aspect of T2 we obtained without intraven ous contrast. Coronal and sagittal reformatted images were also reviewed. FINDINGS: Brain: Extra-axial spaces: No abnormal extra-axial fluid collections. Ventricular system: Within normal limits Cerebral parenchyma: No acute intraparenchymal hemorrhage or mass effect. The cortez-white junction is well differentiated. Cerebellum: Unremarkable. Mass effect: No evidence of midline shift. Intracranial vasculature: Atherosclerotic calcifications of the intracranial vessels. Soft tissues: Right periorbital edema Calvarium/osseous structures: No depressed skull fracture. Paranasal sinuses and mastoid air cells: Clear. Visualized orbits: Right aphakia Cervical spine: Fracture: None. Osseous structures: Multilevel degenerative disc disease changes with endplate spurring and disc oste ophyte complex's. Vertebral alignment: Within normal limits. Spinal canal/Neural Foramina: Disc osteophyte complexes at C5-C7 with at least mild spinal canal sten osis. Facet joint uncovertebral joint arthropathy scattered throughout the cervical spine with varyin g degrees of neural foraminal stenosis. Neck soft tissues: Prevertebral soft tissues are within normal limits. Other: The airway is patent. The lung apices are clear. IMPRESSION: 1. No acute intracranial process. 2. Right periorbital edema without evidence of fracture. 3. No evidence of cervical spine fracture. 4. Mild multilevel degenerative disc disease.
[2023-07-14 17:35] VITALS: BP 164/84; PULSE 74; RESP 18
== END 2023-07-14 17:34 | disposition home or self-care (01) ==
LOC: EC 15:41
DX: S00.83XA Contusion of other part of head, initial encounter (principal); E78.5 Hyperlipidemia, unspecified; I10 Essential (primary) hypertension; F17.200 Nicotine dependence, unspecified, uncomplicated; Z79.82 Long term (current) use of aspirin; Z79.899 Other long term (current) drug therapy; Z23 Encounter for immunization; Z88.5 Allergy status to narcotic agent; W18.30XA Fall on same level, unspecified, initial encounter
CPT/HCPCS: 70450; 72125; 90471; 90715; 99284